=== PATIENT | female | born 1945 | race Caucasian/White ===

== ENCOUNTER 2016-11-15 10:54 | Emergency (ER) | payer MEDICARE, OTHER ==
[~2016-11-15] VITALS: Ht 167.6 cm; Wt 55.0 kg
[~2016-11-15 10:54] MED LIST: ADVA250A INH; ALBU1AER INH; ASPI81 PO; ATOR20TA42 PO; CALC500 PO; CARD240C6 PO; CILO100T PO; COLE625 PO; DOXE25CA2 PO; DUONI NEB; FERR324T4 PO; LACT PO; LASI20TA PO; LEVO100T4 PO; LOSA25TA31 PO; METO50TA PO; METR250 PO; OLOP1DRO EACH EYE; OXYC1SOL5 PO; PROM25TA5 PO; PROT40TA PO; REST15CA PO; TAB-TAB PO; TOLT4 PO; Z.0.OXYGENDME NC
[2016-11-15 10:58] VITALS: BP 172/75; PULSE 90; RESP 16; TEMP 98; O2SAT 92
[2016-11-15 11:31] VITALS: BP 134/63; PULSE 85; RESP 16; O2SAT 97
[2016-11-15 11:41] LABS: AUTOMATED NEUTROPHIL # 10.8 TH/MM3 (1.8-7.7); BASOPHIL # 0.1 TH/MM3 (0-0.2); BASOPHIL % 0.4 % (0.0-2.0); EOSINOPHIL % 0.3 % (0.0-4.0); LYMPH % 8.5 % (9.0-44.0); LYMPHOCYTE # 1.2 TH/MM3 (1.0-4.8); MEAN CELL VOLUME 90.7 FL (80.0-100.0); MEAN CORPUSCULAR HEMOGLOBIN 30.2 PG (27.0-34.0); MEAN CORPUSCULAR HGB CONC 33.3 % (32.0-36.0); MONO % 11.8 % (0.0-8.0); PLATELET COUNT 57 TH/MM3 (150-450); RED BLOOD COUNT 3.08 MIL/MM3 (4.00-5.30); RED CELL DISTRIBUTION WIDTH 15.8 % (11.6-17.2); WHITE BLOOD COUNT 13.7 TH/MM3 (4.0-11.0)
[2016-11-15 11:43] LABS: HEMO FLAGS AUTO DIFF
[2016-11-15 11:50] LABS: APTT (PATIENT) 28.4 SEC (24.3-30.1); INTERNATIONAL NORMALIZED RATIO 1.1 RATIO; PROTHROMBIN TIME - PATIENT 12.5 SEC (9.8-11.6)
[2016-11-15 11:56] LABS: BICARBONATE 25.7 MEQ/L (21.0-32.0); POTASSIUM 3.7 MEQ/L (3.5-5.1)
[2016-11-15 12:21] LABS: BANDS 4 % (0-6); NEUTROPHIL # MANUAL DIFF 12.3 TH/MM3 (1.8-7.7); POLYS (SEG NEUTROPHILS) 86 % (16-70); SCAN/DIFF FINAL DIFF MANUAL; WBC DIFF SAMPLE 100
[2016-11-15] MEDS ORDERED: PROM25TA5 PO (12:21)
[2016-11-15] MEDS ORDERED: KLOR8TAB PO (12:21)
[2016-11-15] MEDS ORDERED: HYDR-3533 PO ×2 (12:21→13:59)
[2016-11-15] MEDS ORDERED: PANT40TA3 PO (12:21)
[2016-11-15] MEDS ORDERED: ZOFR4TAB PO (12:21)
[2016-11-15] MEDS ORDERED: LOMO2.5T PO (12:21)
[2016-11-15] MEDS ORDERED: PROC10TA PO (12:21)
--- NOTE | 2016-11-15 12:21 | PD ---
HPI Chief Complaint: Pain: Acute or Chronic Time Seen by Provider: 11:26 Travel History International Travel<30 days: No Contact w/Intl Traveler<30days: No Traveled to known affect area: No History of Present Illness HPI This is a 71-year-old woman presents to the emergency department complaining of right lower extremity painful swelling. She is a history of stage IV lung cancer, currently receiving treatment for chemotherapy and radiation with some improvement. She also has COPD and is on home oxygen. She has chronic right lower extremity swelling related to a previous bypass harvest. She also has peripheral arterial disease and stents in the leg. She states that early this morning in the middle the night she woke up and had painful tender swelling of the calf. There is a discrete nodule that she can feel in the proximal medial calf that seems to be the focal point of the tenderness. She called and spoke to her oncologist, Dr. Orozco, who recommended she come in for evaluation. History Past Medical History Narrative Medical Stage IV lung cancer, on chemotherapy with Dr. Rayo COPD, on home oxygen CHF CAD, status post CABG History of A. fib GERD Peripheral arterial disease Depression PNEUMOCCOCAL Vaccine (Year): 1 Menopausal: Yes Social History Alcohol Use: No Tobacco Use: No Allergies-Medications (Allergen,Severity, Reaction): Coded Allergies: Betadine (Verified Allergy, Severe, Rash, 11/15/16) Demerol (Verified Allergy, Severe, VOMITING, 11/15/16) Dilaudid (Verified Allergy, Severe, Nausea/Vomiting, 11/15/16) Nonsteroidal Anti-Inflammatory Agts (Verified Allergy, Severe, ACID REFLUX , 11/15/16) Cinnamon (Verified Allergy, Intermediate, 11/15/16) Contrast Media (Verified Allergy, Intermediate, Itching, 11/15/16) patient has severe itching, redness after iv dye- even with premeds Tomato (Verified Allergy, Intermediate, 11/15/16) Morphine (Verified Adverse Reaction, Intermediate, 11/15/16) STATES, "I COULD HAVE THIS IF I NEED IT." Reported Meds & Prescriptions Reported Meds & Active Scripts Active Reported Proair Hfa 8.5 GM Inh (Albuterol Sulfate) 90 Mcg/Act Aer 2 Puff INH Q4H PRN 108 mcg/actuation Acidophilus (Probiotic Product) 1 Chew 1 Chew CHEW DAILY Duoneb (Ipratropium-Albuterol Neb) 0.5-2.5 Mg/3 Ml Neb 1 Nebule INH QID PRN Aspir-81 (Aspirin) 81 Mg Tabdr 81 Mg PO DAILY Atorvastatin (Atorvastatin Calcium) 20 Mg Tab 20 Mg PO HS Oscal 500/200 D-3 (Calcium Carbonate-Vitamin D) 500-200 Mg-Unit Tab 1 Tab PO DAILY Cilostazol 100 Mg Tab 100 Mg PO BID Detrol LA (Tolterodine Tartrate) 4 Mg Cap 4 Mg PO DAILY Diltiazem CD 24 HR 240 Mg Caper 240 Mg PO DAILY Doxepin (Doxepin HCl) 25 Mg Cap 25 Mg PO HS Ferrous Sulfate 325 Mg Tab 325 Mg PO DAILY Advair Diskus Inh (Fluticasone-Salmeterol Inh) 250-50 Mcg/Blist Aer 1 Puff INH BID Rinse mouth after use. Lasix (Furosemide) 20 Mg Tab 20 Mg PO DAILY Levothyroxine (Levothyroxine Sodium) 100 Mcg Tab 100 Mcg PO DAILY Losartan (Losartan Potassium) 25 Mg Tab 25 Mg PO DAILY Metoprolol Tartrate 50 Mg Tab 50 Mg PO BID Multi Vitamin (Multiple Vitamin) 1 Tab Tab 1 Tab PO DAILY Pazeo Opth Drops (Olopatadine HCl) 0.7 % Drops 1 Drop EACH EYE DAILY Lortab (Hydrocodone-Acetaminophen) 5-325 Mg Tab 1 Tab PO Q6H PRN Prochlorperazine Maleate 10 Mg Tab 10 Mg PO Q4H PRN Pantoprazole (Pantoprazole Sodium) 40 Mg Tab 40 Mg PO DAILY Phenergan (Promethazine HCl) 25 Mg Tab 25 Mg PO Q6H PRN Lomotil (Diphenoxylate-Atropine) 2.5-0.025 Mg Tab 1 Tab PO TID PRN Klor-Con 8 (Potassium Chloride) 8 Meq Tab 8 Meq PO DAILY Zofran (Ondansetron HCl) 4 Mg Tab 4-8 Mg PO Q6HR PRN Review of Systems Except as stated in HPI: all other systems reviewed are Neg Physical Exam Narrative GENERAL: Well-appearing 71-year-old woman, no acute distress. SKIN: Warm and dry. CARDIOVASCULAR: Regular rate and rhythm. No murmur appreciated. RESPIRATORY: No accessory muscle use. Clear to auscultation. Breath sounds equal bilaterally. GASTROINTESTINAL: Abdomen soft, non-tender, nondistended. Hepatic and splenic margins not palpable. MUSCULOSKELETAL: No obvious deformities. Examination the right lower extremity reveals previous scars from bypass harvest site. She has some pitting edema that she states is unchanged from baseline. In the calf there is a palpable firm tender nodule several centimeters in size no proximal calf. There is no palpable cords. Pulses are difficult to palpate in the leg but the foot is warm and well perfused. Data Data Last Documented VS Vital Signs Date Time Temp Pulse Resp B/P Pulse Ox O2 Delivery O2 Flow Rate FiO2 11/15/16 13:41 83 18 114/52 97 Nasal Cannula 2 11/15/16 10:58 98.0 Orders Complete Blood Count With Diff (11/15/16 11:26) Basic Metabolic Panel (Bmp) (11/15/16 11:26) Act Partial Throm Time (Ptt) (11/15/16 11:26) Prothrombin Time / Inr (Pt) (11/15/16 11:26) Us Leg Venous Doppler (11/15/16 ) Us Leg Soft Tissue (11/15/16 ) Ed Poc Ultrasound (11/15/16 ) Labs Laboratory Tests Test 11/15/16 11:30 White Blood Count 13.7 TH/MM3 Red Blood Count 3.08 MIL/MM3 Hemoglobin 9.3 GM/DL Hematocrit 28.0 % Mean Corpuscular Volume 90.7 FL Mean Corpuscular Hemoglobin 30.2 PG Mean Corpuscular Hemoglobin 33.3 % Concent Red Cell Distribution Width 15.8 % Platelet Count 57 TH/MM3 Mean Platelet Volume 9.7 FL Neutrophils (%) (Auto) 79.0 % Lymphocytes (%) (Auto) 8.5 % Monocytes (%) (Auto) 11.8 % Eosinophils (%) (Auto) 0.3 % Basophils (%) (Auto) 0.4 % Neutrophils # (Auto) 10.8 TH/MM3 Lymphocytes # (Auto) 1.2 TH/MM3 Monocytes # (Auto) 1.6 TH/MM3 Eosinophils # (Auto) 0.0 TH/MM3 Basophils # (Auto) 0.1 TH/MM3 CBC Comment AUTO DIFF Differential Total Cells 100 Counted Neutrophils % (Manual) 86 % Band Neutrophils % 4 % Lymphocytes % 5 % Monocytes % 5 % Neutrophils # (Manual) 12.3 TH/MM3 Differential Comment FINAL DIFF MANUAL Platelet Estimate LOW Platelet Morphology Comment NORMAL Acanthocytes OCC Prothrombin Time 12.5 SEC Prothromb Time International 1.1 RATIO Ratio Activated Partial 28.4 SEC Thromboplast Time Sodium Level 141 MEQ/L Potassium Level 3.7 MEQ/L Chloride Level 108 MEQ/L Carbon Dioxide Level 25.7 MEQ/L Anion Gap 7 MEQ/L Blood Urea Nitrogen 25 MG/DL Creatinine 1.06 MG/DL Estimat Glomerular Filtration 51 ML/MIN Rate Random Glucose 80 MG/DL Calcium Level 8.0 MG/DL MDM Medical Decision Making Medical Screen Exam Complete: Yes Emergency Medical Condition: Yes Interpretation(s) LABS: CBC remarkable for mildly elevated white count, mild anemia EMP mildly obese BUN/creatinine Coags unremarkable ultrasound for DVT is negative Ultrasound of the soft tissue shows a small confined soft tissue mass likely lipoma with a small rim of hypoechoic fluid. Differential Diagnosis DVT, superficial thrombophlebitis, abscess, hematoma, other Narrative Course Medical decision making INITIAL: 71-year-old woman presents emergency department with painful nodule in her right calf. I think she probably a superficial thrombophlebitis. DVT or hematoma could've a similar appearance. There is no ecchymosis or history of trauma. The foot appears well perfused. She has a history of peripheral vascular disease. Bedside ultrasound done by myself shows some subcutaneous edema in the area of interest. We'll get formal ultrasound and reassess. Procedures Procedure Narrative Point of care ultrasound: Focus soft tissue ultrasounds performed by me to evaluate soft tissue swelling in the right leg. There appears to be subcutaneous edema surrounding a superficial vein in the area. The pain does appear to collapse. Diagnosis Primary Impression: Lipoma Qualified Code: D17.23 - Lipoma of right lower extremity Additional Instructions: Take Keflex as prescribed. Use Lortab if needed for pain. Follow-up with your oncologist as scheduled. Return to the emergency department for any new or worsening symptoms. Med/Other Pt SpecificInfo: Prescription(s) given Disposition: 01 DISCHARGE HOME Condition: Stable Matt Ceballos MD Nov 15, 2016 12:21
[2016-11-15 12:23] LABS: ACANTHOCYTES OCC (NORMAL); PLATELET ESTIMATE SMEAR LOW (NORMAL); PLATELET MORPHOLOGY NORMAL (NORMAL)
[2016-11-15] MEDS ORDERED: DILT-64 PO (12:30)
[2016-11-15] MEDS ORDERED: OLOP1DRO EACH EYE (12:30)
[2016-11-15] MEDS ORDERED: DOXE25CA2 PO (12:30)
[2016-11-15] MEDS ORDERED: FERR325T PO (12:30)
[2016-11-15] MEDS ORDERED: CILO100T PO (12:30)
[2016-11-15] MEDS ORDERED: DETR4CAP PO (12:30)
[2016-11-15] MEDS ORDERED: ADVA250A INH (12:30)
[2016-11-15] MEDS ORDERED: MULT-135 PO (12:30)
[2016-11-15] MEDS ORDERED: IPRASOL INH (12:30)
[2016-11-15] MEDS ORDERED: LEVO100T5 PO (12:30)
[2016-11-15] MEDS ORDERED: ATOR20TA15 PO (12:30)
[2016-11-15] MEDS ORDERED: METO50TA PO (12:30)
[2016-11-15] MEDS ORDERED: FURO1TAB62 PO (12:30)
[2016-11-15] MEDS ORDERED: OSCA200T PO (12:30)
[2016-11-15] MEDS ORDERED: PROB1CHW2 CHEW (12:30)
[2016-11-15] MEDS ORDERED: LOSA25TA PO (12:30)
[2016-11-15] MEDS ORDERED: ALBUAER3 INH (12:30)
[2016-11-15] MEDS ORDERED: ASPI81TA81 PO (12:30)
--- NOTE | 2016-11-15 13:24 | RADRPT ---
EXAM DATE/TIME: 11/15/2016 12:14 [facility] COMPARISON: No previous studies available for comparison. INDICATIONS : Pain in right lower extremity. MEDICAL HISTORY : Osteoporosis. Arthritis. Thyroid disease. Lung cancer. Brain, liver and bon e mets. Myocardial infarction. Cardiac arrest. Congestive heart failure. Coronary artery disease. Hyp ercholesterolemia. A-Fib. COPD. Peripheral vascular disease. Scoliosis. Spinal stenosis. GERD. Hiatal hernia. SURGICAL HISTORY : Tonsillectomy. Right cataract. Craniotomy. Lesion excised from dura. CABG. Hysterectomy. Bilateral iliac artery stent. Angioplasty. Right chest port. Bypass graft in right lowe r extremity. ENCOUNTER: Subsequent ACUITY: 1 day PAIN SCORE: 5/10 LOCATION: Right leg. TECHNIQUE: Venous ultrasound of the leg was performed from the inguinal ligament to the proximal calf. Real-time, color Doppler and spectral tracing, compression and augmentation techniques were us ed. FINDINGS: There is normal compressibility of the deep venous system from the inguinal region to the proximal ca lf. No echogenic clot is seen in the lumen of the common femoral, femoral, popliteal, and posterior tibial veins. There is a normal response of the venous system to proximal and distal augmentation an d respiration. CONCLUSION: Negative for DVT Anish Zimmerman MD on November 15, 2016 at 13:21 Board Certified Radiologist. This report was verified electronically.
[2016-11-15 13:41] VITALS: BP 114/52; PULSE 83; RESP 18; O2SAT 97
--- NOTE | 2016-11-15 13:50 | RADRPT ---
EXAM DATE/TIME: 11/15/2016 12:08 [facility] COMPARISON: No previous studies available for comparison. INDICATIONS : Palpable lump in right calf. MEDICAL HISTORY : Osteoporosis. Arthritis. Thyroid disease. Lung cancer. Brain, liver and bone mets. Myocardial infar ction. Cardiac arrest. Congestive heart failure. Coronary artery disease. Hypercholesterolemia. A-Fib . COPD. Peripheral vascular disease. Scoliosis. Spinal stenosis. GERD. Hiatal hernia. SURGICAL HISTORY : Tonsillectomy. Right cataract. Craniotomy. Lesion excised from dura. CABG. Hysterectomy. Bilatera l iliac artery stent. Angioplasty. Right chest port. Bypass graft in right lower extremity. ENCOUNTER: Initial ACUITY: 1 day PAIN SCORE: 5/10 LOCATION: Right calf. AREA EVALUATED: Right proximal medial calf. FINDINGS: Sonographic evaluation of the area of concern involving the right calf reveals a 2.7 x 1.1 x 1.0 cm i soechoic soft tissue mass within the subcutaneous fat. There is a hypoechoic rim surrounding some of this. No hyperemia. CONCLUSION: Probable small lipoma. Ashutosh Chacon Jr., MD on November 15, 2016 at 13:47 Board Certified Radiologist. This report was verified electronically.
[2016-11-15] MEDS ORDERED: CEPH-460 PO (13:59)
== END 2016-11-15 14:11 | disposition home or self-care (01) ==
LOC: NEPA 10:54
DX: D17.23 Benign lipomatous neoplasm of skin and subcutaneous tissue of right leg (principal); M79.89 Other specified soft tissue disorders; J44.9 Chronic obstructive pulmonary disease, unspecified; I50.9 Heart failure, unspecified; I48.91 Unspecified atrial fibrillation; Z99.81 Dependence on supplemental oxygen
CPT/HCPCS: 76882; 80048; 85007; 85027; 85610; 85730; 93971

== ENCOUNTER 2017-03-07 15:05 | Inpatient (IN) | payer MEDICARE, OTHER ==
[~2017-03-07] VITALS: Ht 154.9 cm; Wt 58.5 kg
[~2017-03-07 15:05] MED LIST changes: -ALBU1AER INH; +ALBUAER3 INH; -ASPI81 PO; +ASPI81TA81 PO; +ATOR20TA15 PO; -ATOR20TA42 PO; -CALC500 PO; -CARD240C6 PO; +CEPH-460 PO; -COLE625 PO; +DETR4CAP PO; +DILT-64 PO; -DUONI NEB; -FERR324T4 PO; +FERR325T PO; +FURO1TAB62 PO; +HYDR-3533 PO; +IPRASOL INH; +KLOR8TAB PO; -LACT PO; -LASI20TA PO; -LEVO100T4 PO; +LEVO100T5 PO; +LOMO2.5T PO; +LOSA25TA PO; -LOSA25TA31 PO; -METR250 PO; +MULT-135 PO; +OSCA200T PO; -OXYC1SOL5 PO; +PANT40TA3 PO; +PROB1CHW2 CHEW; +PROC10TA PO; -PROT40TA PO; -REST15CA PO; -TAB-TAB PO; -TOLT4 PO; -Z.0.OXYGENDME NC; +ZOFR4TAB PO
[2017-03-07 15:22] VITALS: BP 119/56; PULSE 98; RESP 28; TEMP 99.9; O2SAT 96
--- NOTE | 2017-03-07 15:34 | PD ---
HPI Chief Complaint: Respiratory Distress Time Seen by Provider: 15:24 Travel History International Travel<30 days: No Contact w/Intl Traveler<30days: No Traveled to known affect area: No History of Present Illness HPI 71-year-old female with history of lung cancer stage IV status post chemotherapy and treatment, presents to the ER today with several days of shortness of breath, nausea, vomiting, subjective fevers, and dyspnea on exertion today. She is also having a right sided chest discomfort which she currently rates at a 7 out of 10. She states it worsens with deep breaths. Modifying Factors: None Associated Signs & Symptoms: Right sided chest wall pains, shortness of breath, dyspnea on exertion, vomiting, coughing, fevers Risk Factors: Lung cancer history PFSH Past Medical History Anemia: Yes Arthritis: Yes Asthma: No Atrial Fibrillation: Yes Autoimmune Disease: No Blood Disorders: No Anxiety: No Depression: No Heart Rhythm Problems: Yes (CORRECTED AFTER SURGERY) Cancer: Yes (LEFT LUNG W/METS TO DURA, LIVER, BONE (RADIATION 2014)) Cardiac Catheterization: Yes (OCT 2008) Cardiovascular Problems: Yes High Cholesterol: Yes Chemotherapy: Yes Chest Pain: Yes Congestive Heart Failure: Yes COPD: Yes Cerebrovascular Accident: Yes (SEVERAL MINI STROKES) Coronary Artery Disease: Yes Diabetes: No Diminished Hearing: No Endocrine: Yes Gastrointestinal Disorders: Yes (GERD) GERD: Yes Glaucoma: No Genitourinary: Yes (INCONTINENCE, FREQUENCY) Headaches: Yes Hepatitis: No Hiatal Hernia: Yes Heparin Induced Thrombocytopen: No Hypertension: Yes (PVD) Immune Disorder: No Implanted Vascular Access Dvce: No Insomnia: Yes Kidney Stones: No Musculoskeletal: Yes (OSTEOPOROSIS, SCOLIOSIS, SPINAL STENOSIS, ARTHRITIS) Neurologic: Yes (TIA'S, DURA METS FROM LUNG CA) Psychiatric: No Reproductive: No Respiratory: Yes (lung cancer,COPD) Immunizations Current: Yes Migraines: No Myocardial Infarction: Yes (THAT CAUSED CARDIAC ARREST 2008) Renal Failure: No Seizures: No Shingles: No Sleep Apnea: No Thyroid Disease: Yes Ulcer: No Tetanus Vaccination: > 5 Years Influenza Vaccination: Yes PNEUMOCCOCAL Vaccine (Year): 1 Menopausal: Yes : 2 Para: 2 Miscarriage: 0 : 0 Past Surgical History Abdominal Surgery: No AICD: No Appendectomy: No Arteriovenous Shunt: No Body Medical Devices: GERARDO. ILEO-FEMORAL STENTS Cardiac Surgery: Yes (CABG X 3 2008,) Cholecystectomy: Yes Coronary Artery Bypass Graft: Yes (X3 OCT 2008) Ear Surgery: No Endocrine Surgery: No Eye Surgery: No Genitourinary Surgery: No Gynecologic Surgery: Yes (HYSTERECTOMY) Hysterectomy: Yes (PARTIAL) Insulin Pump: No Joint Replacement: No Neurologic Surgery: Yes (CRANIOTOMY/ EXC. LESION DURA) Oral Surgery: Yes (T & A) Pacemaker: No Thoracic Surgery: No Tonsillectomy: Yes (T & A 1962) Other Surgery: Yes (BILAT ILIAC ARTERY STENT AND ANGIOPLASTY) Family History Family Myocardial Infarction: Yes Social History Alcohol Use: No Tobacco Use: No Substance Use: No Allergies-Medications (Allergen,Severity, Reaction): Coded Allergies: Betadine (Verified Allergy, Severe, Rash, 03/07/17) Demerol (Verified Allergy, Severe, VOMITING, 03/07/17) Dilaudid (Verified Allergy, Severe, Nausea/Vomiting, 03/07/17) Nonsteroidal Anti-Inflammatory Agts (Verified Allergy, Severe, ACID REFLUX , 03/07/17) Cinnamon (Verified Allergy, Intermediate, 03/07/17) Contrast Media (Verified Allergy, Intermediate, Itching, 03/07/17) patient has severe itching, redness after iv dye- even with premeds Tomato (Verified Allergy, Intermediate, 03/07/17) Morphine (Verified Adverse Reaction, Intermediate, 03/07/17) STATES, "I COULD HAVE THIS IF I NEED IT." Reported Meds & Prescriptions Reported Meds & Active Scripts Active Lortab (Hydrocodone-Acetaminophen) 5-325 Mg Tab 1-2 Tab PO Q6H PRN Reported Zometa Inj (Zoledronic Acid) 4 Mg/100 Ml Inj 4 Mg IV MONTHLY Toviaz ER (Fesoterodine Fumarate) 8 Mg Yandel 8 Mg PO DAILY Temazepam 15 Mg Cap 15 Mg PO HS PRN Opdivo (Nivolumab) 40 Mg/4 Ml Inj 1 Injection IM DIRECTED Proair Hfa 8.5 GM Inh (Albuterol Sulfate) 90 Mcg/Act Aer 2 Puff INH Q4H PRN 108 mcg/actuation Duoneb (Ipratropium-Albuterol Neb) 0.5-2.5 Mg/3 Ml Neb 1 Nebule INH QID PRN Aspir-81 (Aspirin) 81 Mg Tabdr 81 Mg PO DAILY Atorvastatin (Atorvastatin Calcium) 20 Mg Tab 20 Mg PO HS Diltiazem CD 24 HR 240 Mg Caper 240 Mg PO DAILY Doxepin (Doxepin HCl) 25 Mg Cap 25 Mg PO HS Ferrous Sulfate 325 Mg Tab 325 Mg PO DAILY Advair Diskus Inh (Fluticasone-Salmeterol Inh) 250-50 Mcg/Blist Aer 1 Puff INH BID Rinse mouth after use. Levothyroxine (Levothyroxine Sodium) 100 Mcg Tab 100 Mcg PO DAILY Losartan (Losartan Potassium) 25 Mg Tab 25 Mg PO DAILY Metoprolol Tartrate 50 Mg Tab 50 Mg PO BID Multi Vitamin (Multiple Vitamin) 1 Tab Tab 1 Tab PO DAILY Pazeo Opth 0.7% (Olopatadine HCl) 0.7 % Drops 1 Drop EACH EYE DAILY Lortab (Hydrocodone-Acetaminophen) 5-325 Mg Tab 1 Tab PO Q6H PRN Prochlorperazine Maleate 10 Mg Tab 10 Mg PO Q4H PRN Pantoprazole (Pantoprazole Sodium) 40 Mg Tab 40 Mg PO DAILY Phenergan (Promethazine HCl) 25 Mg Tab 25 Mg PO Q6H PRN Lomotil (Diphenoxylate-Atropine) 2.5-0.025 Mg Tab 1 Tab PO TID PRN Klor-Con 8 (Potassium Chloride) 8 Meq Tab 8 Meq PO DAILY Zofran (Ondansetron HCl) 4 Mg Tab 4-8 Mg PO Q6HR PRN Review of Systems Except as stated in HPI: all other systems reviewed are Neg Physical Exam Narrative GENERAL: Well-developed elderly white female in mild distress. Awake and oriented 3. SKIN: Focused skin assessment warm/dry. HEAD: Atraumatic. Normocephalic. EYES: Pupils equal and round. No scleral icterus. No injection or drainage. ENT: No nasal bleeding or discharge. Mucous membranes pink and moist. NECK: Trachea midline. No JVD. CARDIOVASCULAR: Regular rate and rhythm. No murmur appreciated. RESPIRATORY: No accessory muscle use. Equal and decreased throughout. Breath sounds equal bilaterally. GASTROINTESTINAL: Abdomen soft, non-tender, nondistended. Hepatic and splenic margins not palpable. MUSCULOSKELETAL: No obvious deformities. No clubbing. No cyanosis. No edema. NEUROLOGICAL: Awake and alert. No obvious cranial nerve deficits. Motor grossly within normal limits. Normal speech. PSYCHIATRIC: Appropriate mood and affect; insight and judgment normal. Data Data Last Documented VS Vital Signs Date Time Temp Pulse Resp B/P Pulse Ox O2 Delivery O2 Flow Rate FiO2 03/07/17 15: 97 Nasal Cannula 2 03/07/17: 28 03/07/17: 99.9 98 119/56 Orders Electrocardiogram (03/07/17:) Complete Blood Count With Diff (03/07/17:) Comprehensive Metabolic Panel (03/07/17) Prothrombin Time / Inr (Pt) (03/07/17) Act Partial Throm Time (Ptt) (03/07/17) Lactic Acid Sepsis Protocol (03/07/17) Magnesium (Mg) (03/07/17) Ckmb (Isoenzyme) Profile (03/07/17) Troponin I (03/07/17) Urinalysis - C+S If Indicated (03/07/17) Blood Culture (03/07/17) Chest, Single Ap (03/07/17) Blood Glucose (03/07/17) Ecg Monitoring (03/07/17) Iv Access Insert/Monitor (03/07/17) Oximetry (03/07/17) Oxygen Administration (03/07/17) B-Type Natriuretic Peptide (03/07/17 16:49) Ventilation & Perfusion Scan (03/07/17 18:01) Urine Culture (03/07/17 18:10) Labs Laboratory Tests Test 03/07/17 03/07/17 15 18:10 White Blood Count 8.3 TH/MM3 Red Blood Count 3.25 MIL/MM3 Hemoglobin 9.7 GM/DL Hematocrit 28.2 % Mean Corpuscular Volume 86.8 FL Mean Corpuscular Hemoglobin 29.8 PG Mean Corpuscular Hemoglobin 34.3 % Concent Red Cell Distribution Width 14.9 % Platelet Count 46 TH/MM3 Mean Platelet Volume 8.4 FL Neutrophils (%) (Auto) 80.4 % Lymphocytes (%) (Auto) 8.4 % Monocytes (%) (Auto) 11.0 % Eosinophils (%) (Auto) 0.1 % Basophils (%) (Auto) 0.1 % Neutrophils # (Auto) 6.7 TH/MM3 Lymphocytes # (Auto) 0.7 TH/MM3 Monocytes # (Auto) 0.9 TH/MM3 Eosinophils # (Auto) 0.0 TH/MM3 Basophils # (Auto) 0.0 TH/MM3 CBC Comment AUTO DIFF Differential Comment AUTO DIFF CONFIRMED Prothrombin Time 11.3 SEC Prothromb Time International 1.0 RATIO Ratio Activated Partial 28.6 SEC Thromboplast Time Sodium Level 138 MEQ/L Potassium Level 4.0 MEQ/L Chloride Level 104 MEQ/L Carbon Dioxide Level 24.8 MEQ/L Anion Gap 9 MEQ/L Blood Urea Nitrogen 33 MG/DL Creatinine 1.42 MG/DL Estimat Glomerular Filtration 36 ML/MIN Rate Random Glucose 89 MG/DL Lactic Acid Level 1.4 mmol/L Calcium Level 8.6 MG/DL Magnesium Level 1.8 MG/DL Total Bilirubin 0.6 MG/DL Aspartate Amino Transf 52 U/L (AST/SGOT) Alanine Aminotransferase 50 U/L (ALT/SGPT) Alkaline Phosphatase 89 U/L Total Creatine Kinase 55 U/L Troponin I LESS THAN 0.02 NG/ML Total Protein 6.5 GM/DL Albumin 3.1 GM/DL Urine Color YELLOW Urine Turbidity CLEAR Urine pH 6.5 Urine Specific Aragon 1.010 Urine Protein TRACE mg/dL Urine Glucose (UA) NEG mg/dL Urine Ketones NEG mg/dL Urine Occult Blood SMALL Urine Nitrite POS Urine Bilirubin NEG Urine Urobilinogen LESS THAN 2.0 MG/DL Urine Leukocyte Esterase SMALL Urine RBC 1 /hpf Urine WBC 6 /hpf Urine Squamous Epithelial <1 /hpf Cells Urine Bacteria MANY /hpf Urine Mucus FEW /lpf Microscopic Urinalysis Comment CATH-CULTURE IND MDM Medical Decision Making Medical Screen Exam Complete: Yes Emergency Medical Condition: Yes Medical Record Reviewed: Yes Interpretation(s) Laboratory Tests Test 03/07/17 03/07/17 15:30 18:10 Red Blood Count 3.25 MIL/MM3 (4.00-5.30) Hemoglobin 9.7 GM/DL (11.6-15.3) Hematocrit 28.2 % (35.0-46.0) Platelet Count 46 TH/MM3 (150-450) Neutrophils (%) (Auto) 80.4 % (16.0-70.0) Lymphocytes (%) (Auto) 8.4 % (9.0-44.0) Monocytes (%) (Auto) 11.0 % (0.0-8.0) Lymphocytes # (Auto) 0.7 TH/MM3 (1.0-4.8) Blood Urea Nitrogen 33 MG/DL (7-18) Creatinine 1.42 MG/DL (0.50-1.00) Estimat Glomerular Filtration 36 ML/MIN (>89) Rate Aspartate Amino Transf 52 U/L (15-37) (AST/SGOT) Troponin I LESS THAN 0.02 NG/ML (0.02-0.05) Albumin 3.1 GM/DL (3.4-5.0) Urine Occult Blood SMALL (NEG) Urine Nitrite POS (NEG) Urine Leukocyte Esterase SMALL (NEG) Urine WBC 6 /hpf (0-5) Urine Bacteria MANY /hpf (NONE) Urine Mucus FEW /lpf (OCC) Differential Diagnosis Cough, fevers, vomiting, dyspnea on exertion, chest painpneumonia versus pleurisy versus bronchitis versus costochondritis versus ACS versus CHF Narrative Course Chest x-ray did not show any signs of acute processes. Lab work did not show significant metabolic issues or dehydration. She does have a minor UTI. VQ scan has been ordered for the patient for further evaluation. Physician Communication Physician Communication Case is signed out to oncoming physician Dr. Whitfield awaiting VQ scan. Diagnosis Primary Impression: Shortness of breath Condition: Stable Katja Nguyen MD March 07, 2017 15:34 Katja Nguyen MD March 07, 2017 15:34
[2017-03-07] MEDS ORDERED: NIVO1INJ IM (15:42)
[2017-03-07] MEDS ORDERED: ZOME4INJ IV (15:42)
[2017-03-07] MEDS ORDERED: TEMA15CA PO (15:42)
[2017-03-07] MEDS ORDERED: TOVI8TAB PO (15:42)
--- NOTE | 2017-03-07 16:01 | RADRPT ---
EXAM DATE/TIME: 03/07/2017 15:49 [facility] COMPARISON: CHEST SINGLE AP, August 03, 2016, 18:52. INDICATIONS : Short of breath, pain in right chest and back, vomiting, congestion MEDICAL HISTORY : Chronic obstructive pulmonary disease. Carcinoma, lung. Cardiovascular disease. SURGICAL HISTORY : CABG. ENCOUNTER: Initial ACUITY: 1 day PAIN SCORE: 7/10 LOCATION: Right chest FINDINGS: Bnotsm-[id number]-Tohu is in good position. Lungs are mildly hyperinflated. Sternal wires from previous medi an sternotomy are noted. Heart and pulmonary vascularity are normal. CONCLUSION: Mild hyperinflation without pneumothorax. Joes Lacey MD FACR on March 07, 2017 at 15:57 Board Certified Radiologist. This report was verified electronically.
[2017-03-07 16:06] LABS: AUTOMATED NEUTROPHIL # 6.7 TH/MM3 (1.8-7.7); BASOPHIL % 0.1 % (0.0-2.0); EOSINOPHIL % 0.1 % (0.0-4.0); HEMATOCRIT 28.2 % (35.0-46.0); LYMPH % 8.4 % (9.0-44.0); LYMPHOCYTE # 0.7 TH/MM3 (1.0-4.8); MEAN CELL VOLUME 86.8 FL (80.0-100.0); MEAN CORPUSCULAR HEMOGLOBIN 29.8 PG (27.0-34.0); MEAN CORPUSCULAR HGB CONC 34.3 % (32.0-36.0); NEUT % 80.4 % (16.0-70.0); PLATELET COUNT 46 TH/MM3 (150-450); RED BLOOD COUNT 3.25 MIL/MM3 (4.00-5.30); RED CELL DISTRIBUTION WIDTH 14.9 % (11.6-17.2); WHITE BLOOD COUNT 8.3 TH/MM3 (4.0-11.0)
[2017-03-07 16:09] LABS: HEMO FLAGS AUTO DIFF
[2017-03-07 16:16] LABS: APTT (PATIENT) 28.6 SEC (24.3-30.1); PROTHROMBIN TIME - PATIENT 11.3 SEC (9.8-11.6)
[2017-03-07 16:33] LABS: ALT (GPT) 50 U/L (10-53); ANION GAP 9 MEQ/L (5-15); AST (GOT) 52 U/L (15-37); BICARBONATE 24.8 MEQ/L (21.0-32.0); BLOOD UREA NITROGEN 33 MG/DL (7-18); CHLORIDE 104 MEQ/L (98-107); GLOMERULAR FILTRATION RATE 36 ML/MIN (>89); MAGNESIUM 1.8 MG/DL (1.5-2.5); SODIUM (NA) 138 MEQ/L (136-145)
[2017-03-07 16:37] LABS: ALKALINE PHOSPHATASE 89 U/L (45-117); TOTAL BILIRUBIN ADULT 0.6 MG/DL (0.2-1.0)
[2017-03-07 16:47] LABS: CREATINE KINASE 55 U/L (26-192)
[2017-03-07 18:00] LABS: SCAN/DIFF AUTO DIFF CONFIRMED
[2017-03-07 18:45] LABS: BACTERIA, URINE MANY /hpf; BLOOD, URINE SMALL (NEG); GLUCOSE,URINE NEG (NEG); KETONE, URINE NEG (NEG); MUCUS URINE FEW /lpf (OCC); PH, URINE 6.5 (5.0-8.5); SQUAMOUS EPITHELIAL CELL URINE <1 /hpf (0-5); URINE COLOR YELLOW (YELLW/STRAW)
[2017-03-07 18:47] LABS: COMMENT (UR) CATH-CULTURE IND; CULTURE IF INDICATED CATH CULTURE IND; NITRITE,URINE POS (NEG)
[2017-03-07 19:06] VITALS: BP 123/58; PULSE 87; RESP 18; O2SAT 98
--- NOTE | 2017-03-07 19:11 | PD ---
Physical Exam Narrative General: The patient is a well-developed well-nourished female in no acute distress. Head and Neck exam: Head is normocephalic atraumatic. Eyes: EOMI, pupils are equal round and reactive to light. Nose: Midline septum with pink mucous membranes Mouth: Dentition unremarkable. Moist mucus membranes. Posterior oropharynx is not erythematous. No tonsillar hypertrophy. Uvula midline. Airway patent. Neck: No palpable lymphadenopathy. No nuchal rigidity. No thyromegaly. Cardiovascular: Regular rate and rhythm without murmurs, gallops, or rubs. Lungs: Decreased breath sounds in bilateral lung bases, no rhonchi, no crackles audible. Abdomen: Soft, without tenderness to palpation in all 4 quadrants of the abdomen. No guarding, rebound, or rigidity. Normal bowel sounds are audible. No tenderness on palpation of McBurney's point. Extremities: No clubbing, cyanosis, or edema. No calf tenderness on palpation. Back: No spinous process tenderness to palpation. No costovertebral angle tenderness to palpation. Neurologic Exam: Nonfocal. Skin Exam: No rash noted. Intact skin that is warm and dry. Data Data Last Documented VS Vital Signs Date Time Temp Pulse Resp B/P Pulse Ox O2 Delivery O2 Flow Rate FiO2 03/07/17 20:35 85 18 111/53 94 Nasal Cannula 2 03/07/17 15:22 99.9 Orders Electrocardiogram (03/07/17 15:24) Complete Blood Count With Diff (03/07/17 15:24) Comprehensive Metabolic Panel (03/07/17 15:24) Prothrombin Time / Inr (Pt) (03/07/17 15:24) Act Partial Throm Time (Ptt) (03/07/17 15:24) Lactic Acid Sepsis Protocol (03/07/17 15:24) Magnesium (Mg) (03/07/17 15:24) Ckmb (Isoenzyme) Profile (03/07/17 15:24) Troponin I (03/07/17 15:24) Urinalysis - C+S If Indicated (03/07/17 15:24) Blood Culture (03/07/17 15:24) Chest, Single Ap (03/07/17 15:24) Blood Glucose (03/07/17 15:24) Ecg Monitoring (03/07/17 15:24) Iv Access Insert/Monitor (03/07/17 15:24) Oximetry (03/07/17 15:24) Oxygen Administration (03/07/17 15:24) B-Type Natriuretic Peptide (03/07/17 16:49) Ventilation & Perfusion Scan (03/07/17 18:01) Urine Culture (03/07/17 18:10) Ceftriaxone Inj (Rocephin Inj) (03/07/17 19:15) Acetaminophen (Tylenol) (03/07/17 19:45) Heparin Infusion YANI.Q1H (03/07/17 20:37) Act Partial Throm Time (Ptt) (03/07/17 20:37) Prothrombin Time / Inr (Pt) (03/07/17 20:37) Cbc No Diff, Includes Plts (03/07/17 20:37) Cbc No Diff, Includes Plts (03/10/17 06:00) Act Partial Throm Time (Ptt) (03/08/17 03:37) Occult Blood (Hemoccult) Stool (03/07/17 20:37) Admit Order (Ed Use Only) (03/07/17 20:45) Labs Laboratory Tests Test 03/07/17 03/07/17 15:30 18:10 White Blood Count 8.3 TH/MM3 Red Blood Count 3.25 MIL/MM3 Hemoglobin 9.7 GM/DL Hematocrit 28.2 % Mean Corpuscular Volume 86.8 FL Mean Corpuscular Hemoglobin 29.8 PG Mean Corpuscular Hemoglobin 34.3 % Concent Red Cell Distribution Width 14.9 % Platelet Count 46 TH/MM3 Mean Platelet Volume 8.4 FL Neutrophils (%) (Auto) 80.4 % Lymphocytes (%) (Auto) 8.4 % Monocytes (%) (Auto) 11.0 % Eosinophils (%) (Auto) 0.1 % Basophils (%) (Auto) 0.1 % Neutrophils # (Auto) 6.7 TH/MM3 Lymphocytes # (Auto) 0.7 TH/MM3 Monocytes # (Auto) 0.9 TH/MM3 Eosinophils # (Auto) 0.0 TH/MM3 Basophils # (Auto) 0.0 TH/MM3 CBC Comment AUTO DIFF Differential Comment AUTO DIFF CONFIRMED Prothrombin Time 11.3 SEC Prothromb Time International 1.0 RATIO Ratio Activated Partial 28.6 SEC Thromboplast Time Sodium Level 138 MEQ/L Potassium Level 4.0 MEQ/L Chloride Level 104 MEQ/L Carbon Dioxide Level 24.8 MEQ/L Anion Gap 9 MEQ/L Blood Urea Nitrogen 33 MG/DL Creatinine 1.42 MG/DL Estimat Glomerular Filtration 36 ML/MIN Rate Random Glucose 89 MG/DL Lactic Acid Level 1.4 mmol/L Calcium Level 8.6 MG/DL Magnesium Level 1.8 MG/DL Total Bilirubin 0.6 MG/DL Aspartate Amino Transf 52 U/L (AST/SGOT) Alanine Aminotransferase 50 U/L (ALT/SGPT) Alkaline Phosphatase 89 U/L Total Creatine Kinase 55 U/L Troponin I LESS THAN 0.02 NG/ML B-Type Natriuretic Peptide 215 PG/ML Total Protein 6.5 GM/DL Albumin 3.1 GM/DL Urine Color YELLOW Urine Turbidity CLEAR Urine pH 6.5 Urine Specific [place] 1.010 Urine Protein TRACE mg/dL Urine Glucose (UA) NEG mg/dL Urine Ketones NEG mg/dL Urine Occult Blood SMALL Urine Nitrite POS Urine Bilirubin NEG Urine Urobilinogen LESS THAN 2.0 MG/DL Urine Leukocyte Esterase SMALL Urine RBC 1 /hpf Urine WBC 6 /hpf Urine Squamous Epithelial <1 /hpf Cells Urine Bacteria MANY /hpf Urine Mucus FEW /lpf Microscopic Urinalysis Comment CATH-CULTURE IND MDM Medical Record Reviewed: Yes Supervised Visit with NAKIA: No Interpretation(s) Last Impressions Lung Scan-VQ Nuclear Medicine 03/07/17 180 Signed Impressions: Service Date/Time: Tuesday, March 07, 2017 19:52 - CONCLUSION: Intermediate probability for pulmonary embolism. Rodney Vivar MD Narrative Course During the course of the patients emergency department visit, the patients history, examination, and differential diagnosis were reviewed with the patient. The patient had IV access obtained and blood work sent for analysis. The patient was placed on a school bus monitor with oximetry and blood pressure monitoring. The patient's case was checked out to me by Dr. Obrien. The patient is a 71-year-old female who presents to [facility] emergency department with a history of right sided lateral chest pain that is worse with taking a deep breath and was associated with a cough earlier today, increase dyspnea with exertion. The patient reports that she has a history of COPD with dyspnea at her baseline. The patient reports that she had 1 episode of vomiting earlier today. The patient is also recently started on immunotherapy for lung cancer. She completed chemotherapy with Dr. Rojo in October 2016. Her primary care physician is Dr. Beck. The patients laboratory studies were reviewed and remarkable for a white count of 8.3, hemoglobin 9.7, platelets 46 with 80.4 neutrophils, lymphocytes 8.4, monocytes 11, CMP is remarkable for a BUN of 33, creatinine 1.42, AST 52, CPK 55 , troponin I less than 0.02, lactic acid 1.4, PT 11.3, PTT 28.6, urinalysis shows small occult blood, positive nitrite, small leukocyte esterase, 6 WBCs, many bacteria. This is reportedly a catheterized specimen, culture indicated. The patient's symptoms could be related to pyelonephritis with a right-sided CVA tenderness, however palpating for CVA tenderness is somewhat difficult in this patient who has some deformity of her back related to kyphosis. The patient will be started on antibiotic. The patient will be given Rocephin 1 g IV. Radiology studies were reviewed and remarkable for a chest x-ray that shows mild hyperinflation, evidence of COPD, no other acute abnormality. The patient is in the process of waiting going to VQ scan to evaluate for possible PE. VQ scan was intermediate probability for PE. Given the patient's symptoms there continues to be concerned that this is a pulmonary embolism that is causing her symptoms. The patient will be admitted to the hospital for continued evaluation and treatment. The patient's case was discussed with the [facility] hospitalist group. They did agree with the patient being started on heparin in spite of the patient's low platelets. The patient's platelets have been at this level chronically. The patient will be started on a heparin drip without a bolus. The patient's CBC will be monitored closely. The patient was agreeable with this plan. The patients results were discussed with the patient, including the plan of care. I explained that further testing and/ or monitoring is indicated based on the patients history, examination, and/ or laboratory findings. Therefore, I recommended admission for additional evaluation. The patient expressed understanding and was agreeable with this plan. The patient was admitted to the hospital in stable condition and sent to a bed under the care of the [facility] hospitalist group. Physician Communication Physician Communication The patient's case was discussed with Hilton Garcias, who did agree to admit the patient to Dr. Crespo's service. Diagnosis Primary Impression: Shortness of breath Additional Impressions: Right-sided chest pain Urinary tract infection Qualified Code: N39.0 - Urinary tract infection without hematuria, site unspecified Admitting Information Admitting Physician Requests: Admit Condition: Stable Maru Whitfield MD March 07, 2017 19:10
[2017-03-07] MEDS ORDERED: cefTRIAXone INJ 1,000 MG in SODIUM CHLORIDE 0.9% INJ 100 ML IV ONE (19:15)
[2017-03-07] MEDS ORDERED: ACETAMINOPHEN 325 MG TAB PO ONE (19:45)
--- NOTE | 2017-03-07 20:28 | RADRPT ---
EXAM DATE/TIME: 03/07/2017 19:52 [facility] COMPARISON: LUNG VENTILATION & PERFUSION SCAN, August 04, 2016, 15:29. INDICATIONS : Shortness of breath and right sided chest pressure for a few days. DOSE: 8.1 mCi Tc99m MAA IV 1.08 mCi Tc99m DTPA aerosol MEDICAL HISTORY : Carcinoma, lung. Chronic obstructive pulmonary disease. Stroke. SURGICAL HISTORY : Craniotomy. Hysterectomy. ENCOUNTER: Initial ACUITY: 2 days PAIN SCALE: 7/10 LOCATION: Right chest TECHNIQUE: Following five minutes of tidal breathing of DTPA aerosol, planar images of the lungs were performed in eight projections. The patient was then injected with MAA, and eight-view perfusion scan was perf ormed. FINDINGS: There is a heterogeneous pattern of aerosol delivery to the periphery of both lungs. The perfusion lung scan demonstrates some mismatched defects in the upper lobes. CONCLUSION: Intermediate probability for pulmonary embolism. Rodney Vivar MD on March 07, 2017 at 20:23 Board Certified Radiologist. This report was verified electronically.
[2017-03-07 20:35] VITALS: BP 111/53; PULSE 85; RESP 18; O2SAT 94
[2017-03-07 21:41] LABS: HEMATOCRIT 25.4 % (35.0-46.0); MEAN CELL VOLUME 87.4 FL (80.0-100.0); MEAN CORPUSCULAR HEMOGLOBIN 29.2 PG (27.0-34.0); MEAN CORPUSCULAR HGB CONC 33.4 % (32.0-36.0); PLATELET COUNT 37 TH/MM3 (150-450); RED BLOOD COUNT 2.91 MIL/MM3 (4.00-5.30); WHITE BLOOD COUNT 7.2 TH/MM3 (4.0-11.0)
[2017-03-07 21:43] LABS: REVIEW FLAG FINAL
[2017-03-07 21:47] LABS: APTT (PATIENT) 26.7 SEC (24.3-30.1); PROTHROMBIN TIME - PATIENT 11.4 SEC (9.8-11.6)
[2017-03-07] MEDS: HEPARIN-D5W INJ 250 ML IV SCH (21:57)
[2017-03-07 22:01] VITALS: BP 115/70; PULSE 90; RESP 18; O2SAT 94
[2017-03-07] MEDS ORDERED: SODIUM CHLORIDE 0.9% FLUSH 10 ML FLUSH IV FLUSH PRN (22:15)
[2017-03-07] MEDS ORDERED: ONDANSETRON HCL 4 MG/2 ML VIAL IVP PRN (22:15)
[2017-03-07] MEDS ORDERED: MAGNESIUM HYDROXIDE SUSP 30 ML CUP PO PRN (22:15)
[2017-03-07] MEDS ORDERED: SENNOSIDES 8.6 MG TAB PO PRN (22:15)
[2017-03-07] MEDS: SODIUM CHLOR 0.9% 1000 ML INJ 1,000 ML IV SCH (22:34)
[2017-03-07 23:41] VITALS: TEMP 98.4
[2017-03-08] VITALS (9 sets, daily range): BP systolic 116–157; BP diastolic 55–67; PULSE 68–84; RESP 16–20; TEMP 96.6–99.4; O2SAT 96–98
[2017-03-08 04:00] LABS: ANION GAP 6 MEQ/L (5-15); BICARBONATE 23.7 MEQ/L (21.0-32.0); BLOOD UREA NITROGEN 27 MG/DL (7-18); CHLORIDE 111 MEQ/L (98-107); GLOMERULAR FILTRATION RATE 48 ML/MIN (>89); POTASSIUM 3.9 MEQ/L (3.5-5.1); SODIUM (NA) 141 MEQ/L (136-145)
[2017-03-08 04:13] LABS: APTT (PATIENT) 39.7 SEC (24.3-30.1)
[2017-03-08] MEDS: FAMOTIDINE 20 MG TAB PO SCH ×2 (09:00→21:00)
[2017-03-08] MEDS: SODIUM CHLOR 0.9% 1000 ML INJ 1,000 ML IV SCH ×3 (09:14→19:35)
[2017-03-08] MEDS: ACETAMINOPHEN 325 MG TAB PO PRN ×3 (09:15→22:00)
[2017-03-08] MEDS: SODIUM CHLORIDE 0.9% FLUSH 10 ML FLUSH IV FLUSH SCH ×2 (09:15→21:00)
[2017-03-08] MEDS ORDERED: PILL SPLITTER OTHER PRN (09:15)
[2017-03-08 09:25] LABS: APTT (PATIENT) 39.7 SEC (24.3-30.1)
--- NOTE | 2017-03-08 09:31 | MH ---
cc: JOSHUA CRESPO DATE OF ADMISSION 03/07/2017 CHIEF COMPLAINT Shortness of breath. TRAVEL No travel in the last 30 days. HISTORY OF PRESENT ILLNESS This is a 71-year-old white female who woke up to feed her cats on the at 0300 and began having an acute onset of right sided chest discomfort. She states that it was associated with shortness of breath The patient went back and laid back down, but became nauseated and had dry heaves yesterday a.m., the day of admission. The patient also complained of some fevers and had shortness of breath off and on during the day. Her daughter now lives with her and assists her with her care. She was diagnosed in April of 2015 with lung cancer and treatment was initiated again in April of 2016 for the lung cancer with metastasis. The patient has been through six rounds of chemotherapy and is currently doing immunotherapy. Her next dose is due Tuesday. The patient denies any other chest pain besides the right sided chest pain that is related to her shortness of breath. The patient has an occasional cough. No further nausea or vomiting. No diarrhea. No constipation. The patient's bowels did move this morning normally, but she did note some possible blood in the stool. MEDICAL HISTORY 1. Arthritis 2. Anemia 3. Atrial fibrillation 4. Coronary artery disease 5. Mini-strokes 6. GERD 7. Urinary incontinence 8. Hypertension 9. Peripheral vascular disease 10. Osteoporosis 11. Scoliosis 12. Spinal stenosis 13. Lung cancer 14. COPD 15. Was a tobacco user until 2008. 16. [place] in 2008 17. Congestive heart failure 18. Thyroid disease 19. Insomnia 20. Hiatal hernia 21. Headaches. Most of this information is being gathered from the record and the patient. SURGICAL HISTORY 1. She has had chemotherapy. 2. She has had immunotherapy. 3. Iliofemoral stents with three bypasses in 2008. 4. Cholecystectomy 5. Hysterectomy 6. Craniotomy to remove a cancerous lesion. 7. T&A 8. Angioplasty ALLERGIES BETADINE, CINNAMON, CONTRAST MEDIA, DEMEROL, DILAUDID, MORPHINE, NONSTEROIDAL ANTI-INFLAMMATORY AGENTS AND TOMATOES. REPORTED MEDICATIONS 1. ProAir 2. Opdivo 3. Temazepam 4. Toviaz 5. Zometa 6. Lortab for pain SOCIAL HISTORY The patient was last June and currently still lives in her home. Her daughter is now living with her to assist. The patient was a long-term tobacco user, quit in 2008. No alcohol. No illicit drugs. REVIEW OF SYSTEMS A 12-point review was obtained, positives noted in the HPI which include her right sided chest pain, shortness of breath, some fever, nausea, vomiting or her chief complains. Other systems are unremarkable or negative. PHYSICAL EXAM VITAL SIGNS: Temperature is now 97.6, pulse 75, respirations 18, blood pressure 127/55, O2 sat 96. Initially last night recorded is temp of 98.4, pulse 90, respirations 18, blood pressure 115/70, O2 sat 94, O2 at two liters. GENERAL: This is a slim, but well-developed elderly white female who looks to be her stated age. She is resting in the bed, alert and oriented times three. SKIN: Pale, but warm and dry. She has a few abrasions on her extremities. HEAD, EYES, EARS, NOSE, AND THROAT: Atraumatic, normocephalic. PERRLA at 2. No nasal discharge. Mucous membranes are pale, but moist. Trachea is midline. CARDIOVASCULAR: S1 and S2, regular rate and regular. No murmurs, rubs or gallops. She has no edema in her left leg, right lower leg has a trace of edema. Pulses intact. RESPIRATORY: Her breath sounds have some mild decreased sounds throughout. I hear no wheezes, rales or rhonchi. MUSCULOSKELETAL: She moves all extremities with purpose. Her hand veterinarian assistant are equal. NEUROLOGIC: Alert and oriented, a fairly good historian. Speech is clear. PSYCHIATRIC: Appropriate mood and affect. Insight and judgment is normal. DIAGNOSTIC DATA WBC count this last p.m. 7.2, RBC 2.91, hemoglobin 8.5, was 9.7 on admission, hematocrit 25.4, platelet count is 46 on admission, now 37. PT-INR is 1. Her last APTT is 39.7. Chemistry this a.m. at 0330, sodium 141, potassium 3.9, chloride 111, carbon dioxide 23.7, amnion gap is 6, BUN 27, creatinine 1.11, lactic acid was 1.4, her troponin's are negative at less than 0.02, BMP is 215, albumin 3.1, total protein 6.5. Her urine is yellow and clear, pH is 6.5, specific gravity 1.010, trace of protein, small amount of occult blood, positive for nitrites, small amount of leukocyte esterase, all others are negative or unremarkable. We are doing a culture and sensitivity on that urine. IMAGING STUDIES Show VQ scan to have intermediate probability of pulmonary embolism. ASSESSMENT AND PLAN 1. Pulmonary emboli associated with shortness of breath, cough and fevers, nausea and vomiting. 2. UTI. 3. History of lung cancer with metastasis still receiving. Immunotherapy. 4. Hypertension 5. COPD 6. Dyspnea 7. GERD PLAN 1. Aggressive treat her with a heparin drip. 2. We will continue to re-evaluate her medications as warranted and monitor any increased blood in her stools. Currently, the patient can be out of bed, but only with assistance. She is admitted with an inpatient status. 3. We will consult oncology to follow her for her cancer needs and treatment regimens. 4. She received Rocephin IV and we will continue that. 5. Heparin drip is per protocol. 6. Tylenol for any pain or fever. 7. She is currently on IV fluids for hydration, normal saline at 100 cc an hour. 8. We will re-evaluate her labs in the morning. 9. She will be on a heart healthy diet. 10. O2 as warranted. 11. DVT prophylaxis 12. Pepcid for her GERD. To my knowledge, the patient is full code, full aggressive care and we will continue to follow. Dictated by: YOSEPH Heath Joshua Crespo MD JP/NICKOLAS /8:44 AM /9:11 AM pt seen and examined as above chart was reviewed meds and labs reviewed plan of care nina wood pt BELIA
[2017-03-08] MEDS ORDERED: ONDANSETRON ODT 4 MG TAB PO PRN (10:45)
[2017-03-08] MEDS ORDERED: PROCHLORPERAZINE MALEATE 10 MG TAB PO PRN (10:45)
[2017-03-08] MEDS ORDERED: ACETAMINOPHEN/HYDROcodone 325 MG/5 MG TAB PO PRN ×2 (10:45)
[2017-03-08] MEDS ORDERED: ALBUTEROL SULFATE 90 MCG/ACT HFA 8 GM INHALER INH PRN (10:45)
[2017-03-08] MEDS ORDERED: PROMETHAZINE HCL 25 MG TAB PO PRN (10:45)
[2017-03-08] MEDS ORDERED: RESP: ALBUTEROL 2.5 MG/IPRATROPIUM 0.5 MG NEB (PRN) INH (10:45)
[2017-03-08] MEDS ORDERED: DIPHENOXYLATE/ATROPINE 2.5 MG/0.025 MG TAB PO PRN (10:45)
[2017-03-08] MEDS ORDERED: OLOPATADINE OPTH EACH EYE SCH (10:45)
--- NOTE | 2017-03-08 11:13 | RADRPT ---
EXAM DATE/TIME: 03/08/2017 10:21 [facility] COMPARISON: US LEG BILATERAL VENOUS DOPPLER, August 04, 2016, 18:18. INDICATIONS : Bilateral leg swelling. MEDICAL HISTORY : Myocardial infarction. Stroke. Hypercholesterolemia. CAD. CHF. Hyperlipemia. A-fib. COPD. Lung cancer . PAD. GERD. Osteoporosis. SURGICAL HISTORY : Tonsillectomy.CABG Hysterectomy.Craniotomy. Cholecystectomy. ENCOUNTER: Initial ACUITY: 1 day PAIN SCORE: 3/10 LOCATION: Bilateral legs. TECHNIQUE: Venous ultrasound of the left and right leg was performed from the inguinal ligament to the proximal calf. Real-time, color Doppler and spectral tracing, compression and augmentation techniques were us ed. FINDINGS: RIGHT LEG: There is normal compressibility of the deep venous system from the inguinal region to the proximal ca lf. No echogenic clot is seen in the lumen of the common femoral, femoral, popliteal, and posterior tibial veins. There is a normal response of the venous system to proximal and distal augmentation an d respiration. LEFT LEG: There is normal compressibility of the deep venous system from the inguinal region to the proximal ca lf. No echogenic clot is seen in the lumen of the common femoral, femoral, popliteal, and posterior tibial veins. There is a normal response of the venous system to proximal and distal augmentation an d respiration. CONCLUSION: 1. No evidence of deep venous thrombosis. Taco Pack MD on March 08, 2017 at 11:08 Board Certified Radiologist. This report was verified electronically.
[2017-03-08 11:17] LABS: HEMATOCRIT 23.8 % (35.0-46.0); MEAN CELL VOLUME 87.5 FL (80.0-100.0); MEAN CORPUSCULAR HEMOGLOBIN 28.8 PG (27.0-34.0); MEAN CORPUSCULAR HGB CONC 32.9 % (32.0-36.0); PLATELET COUNT 33 TH/MM3 (150-450); RED BLOOD COUNT 2.71 MIL/MM3 (4.00-5.30); RED CELL DISTRIBUTION WIDTH 15.1 % (11.6-17.2)
[2017-03-08 11:18] LABS: REVIEW FLAG FINAL
[2017-03-08] MEDS: FERROUS SULFATE 325 MG (65 MG ELEMENTAL IRON) TAB PO SCH (11:54)
[2017-03-08] MEDS: LEVOTHYROXINE SODIUM 100 MCG TAB PO SCH (11:55)
[2017-03-08] MEDS: PANTOPRAZOLE SOD 40 MG DELAYED RELEASE TAB PO SCH (11:55)
[2017-03-08] MEDS: DILTIAZEM-CD 240 MG CAP ER PO SCH (11:55)
[2017-03-08] MEDS ORDERED: ALBUTEROL SULFATE 90 MCG/ACT HFA 18 GM INHALER INH PRN (12:45)
[2017-03-08] MEDS: TOLTERODINE TARTRATE 4 MG CAP LA PO SCH (13:15)
[2017-03-08] MEDS: LOSARTAN 25 MG TAB PO SCH (13:15)
[2017-03-08] MEDS: POTASSIUM CHLORIDE 8 MEQ CONTROLLED RELEASE TAB PO SCH (13:15)
--- NOTE | 2017-03-08 13:21 | EKG ---
Date Performed: 03/07/2017 Time Performed: 15:31:03 PTAGE: 71 years EKG: Sinus rhythm WITH FIRST DEGREE AV BLOCK RIGHT BUNDLE BRANCH BLOCK LEFT ANTERIOR FASCICULAR BLOCK ABNORMAL ECG INT ERPRETATION BASED ON A DEFAULT AGE OF 40 YEARS PREVIOUS TRACING : 08/04/2016 06.51 Compared to prior tracing no significant change DOCTOR: Pedro Faulkner Interpretating Date/Time 03/08/2017 13:20:52
--- NOTE | 2017-03-08 13:22 | EKG ---
Date Performed: 03/08/2017 Time Performed: 06:59:46 PTAGE: 71 years EKG: Sinus rhythm WITH FIRST DEGREE AV BLOCK RIGHT BUNDLE BRANCH BLOCK LEFT ANTERIOR FASCICULAR BLOCK POSSIBLE SEPTAL MYOCARDIAL INFARCTION , OF INDETERMINATE AGE ABNORMAL ECG PREVIOUS TRACING : 03/07/2017 15.31 Compared to prior tracing no significant change DOCTOR: Pedro Faulkner Interpretating Date/Time 03/08/2017 13:21:00
[2017-03-08] MEDS: cefTRIAXone INJ 1,000 MG in SODIUM CHLORIDE 0.9% INJ 100 ML IV SCH (19:41)
[2017-03-08] MEDS: BUDESONIDE-FORMOTEROL 160/4.5 MCG INHALER INH SCH (21:52)
[2017-03-08] MEDS: METOPROLOL TARTRATE 50 MG TAB PO SCH (21:54)
[2017-03-08] MEDS: DOXEPIN HCL 25 MG CAP PO SCH (21:54)
[2017-03-08] MEDS: ATORVASTATIN 20 MG TAB PO SCH (21:54)
[2017-03-08] MEDS: TEMAZEPAM 15 MG CAP PO PRN (21:55)
[2017-03-09] VITALS (11 sets, daily range): BP systolic 109–148; BP diastolic 48–65; PULSE 67–82; RESP 16–20; TEMP 95.6–98.9; O2SAT 94–98
[2017-03-09] MEDS ORDERED: diphenhydrAMINE HCL 25 MG CAP PO PRN ×2 (03:45→16:00)
[2017-03-09] MEDS ORDERED: ACETAMINOPHEN 325 MG TAB PO PRN ×2 (03:45→16:00)
[2017-03-09] MEDS: LEVOTHYROXINE SODIUM 100 MCG TAB PO SCH (05:09)
--- NOTE | 2017-03-09 05:41 | MB ---
cc: CHHAYA PAUL DATE OF 1945 DATE OF CONSULTATION March 08, 2017 REASON FOR CONSULTATION Patient with a history of Stage IV ceq-[id number] lung cancer who presents to the hospital with shortness of breath. CHIEF COMPLAINT Chest pain with deep inspiration. HISTORY OF PRESENT ILLNESS Ms. Burrell is a 71-year-old female who has a diagnosis of Stage IV [id number] lung cancer. She is currently being treated with IV nivolumab and has received one treatment thus far. She was originally diagnosed with lung cancer in 2014. 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 She underwent radiation treatments to the scapula. She has also had craniotomy and removal of the skull mass. She was previously being treated with carboplatin and Taxol and further treatments were stopped due to pancytopenia. Most recent CT scans showed stable disease. She presents to the emergency department with acute dyspnea and right-sided chest pain. She also was having nausea and had a fever. She states that she felt like she was trying to catch her breath. The pain is sharp in nature and is exacerbated by deep inspiration and expiration. The patient was admitted to the hospital. On admission, due to the high suspicion for DVT in the setting of malignancy, the patient underwent VQ scan which showed an intermediate probability for her pulmonary embolism. She was not given a CTA due to her history of ALLERGY TO CONTRAST. She was started on heparin. However, her platelets have been low. She has not had any bleeding. She has a very small bruise in her right upper arm. On admission the patient was found to be anemic with a hemoglobin of 8.5. This has further dropped to 7.8 this morning. She has remained afebrile. Her O2 sats have been in the mid-90s on nasal cannula. D-dimer was checked which was elevated. She also had Doppler ultrasound of the lower extremities, did not did not show any evidence of DVT. She had chest x-ray on admission which did not show any evidence of pneumonia. The patient denies any headaches, no dysphagia. No abdominal pain. No diarrhea or constipation. No lower extremity edema or pain. REVIEW OF SYSTEMS A comprehensive 14-point review of systems was completed which is negative except as described in the HPI. PAST MEDICAL HISTORY 1. Stage IV iym-ozpbb-xzqh lung cancer, 2. Anemia. 3. Atrial fibrillation. 4. Coronary artery disease. 5. History of CVA. 6. Gastroesophageal reflux disease. 7. Hypertension. 8. Peripheral vascular disease. 9. Osteoporosis. 10. COPD. 11. Tobacco abuse. 12. History of [place] in 2008. 13. Congestive heart failure. SURGICAL HISTORY 1. Iliofemoral stents with bypass in 2008. 2. Cholecystectomy. 3. Hysterectomy. 4. Craniotomy. 5. Angioplasty. MEDICATIONS Medications were reviewed in the EMR. ALLERGIES She is allergic to a number of foods and drugs including - BETADINE. CINNAMON. CONTRAST MEDIA. DEMEROL. DILAUDID. MORPHINE. NSAIDS. ANTIINFLAMMATORY AGENTS. TOMATOES. SOCIAL HISTORY She is . She lives in her home. Her daughter lives with her. She has a long history of tobacco abuse but quit in 2008. No alcohol or illicit drug use. FAMILY HISTORY Reviewed and is noncontributory to this admission. PHYSICAL EXAMINATION VITAL SIGNS: Blood pressure is 147/65, pulse is in the 70s, temperature 97.5, O2 sats are 97% on room air. GENERAL: Elderly female, chronically ill-appearing, cachectic, in mild distress. HEENT: Pupils are equal, round, reactive to light. EOMI. No oral thrush. No oral lesions. NECK: Supple. No JVD. No bruits. No lymphadenopathy. CHEST: Clear to auscultation bilaterally. CARDIAC: S1-S2, regular rate and rhythm. ABDOMEN: Soft, nontender, nondistended. Bowel sounds are present. EXTREMITIES: Without any edema, erythema or cyanosis. SKIN: Without any petechiae, lesion or bruises. NEURO: No focal deficits. PSYCHIATRIC: Mood and affect is appropriate. LABORATORY DATA WBCs 5, hemoglobin 7.8, MCV 87.5, platelet count 33. Serum chemistries shows sodium of 141, potassium 3.9, chloride 111, CO2 23.7, BUN 27, creatinine 1.11, GFR is 48, lactic acid is 1.4. Troponins less than 0.02. BNP is 215. Albumin is 3.1. D-dimer is elevated to 1.07. Urine nitrites are positive, small occult blood, leuko esterase is positive. IMAGING STUDIES Reviewed in the EMR, discussed in the HPI. ASSESSMENT AND PLAN This is a 71-year-old female with a history of Stage IV ygr-skrlp-[id number] lung cancer who was recently initiated on IV nivolumab as a second-line treatment. She has been treated with [place]-based therapy in the past. She presents with acute dyspnea and chest pain. 1. Acute dyspnea, chest pain on deep inspiration and expiration. D-dimers are elevated. VQ scan showed intermediate probability of pulmonary embolism. Doppler ultrasound of the lower extremities do not show a DVT. Given her history of pulmonary embolism, she has a high risk for developing PE. She continues to have the symptoms. I would proceed with getting a CTA. We will premedicate this patient with IV steroids and Benadryl prior to giving her contrast. She has a history of developing hives after contrast. She has had repeated imaging in the past with contrast and she does well with steroids and Benadryl. We will continue heparin GTT. If her platelet count drops below 30,000, we will stop heparin. 2. UTI. I agree with IV antibiotics. Preliminary urine cultures show gram-negative rods. 3. Acute anemia secondary to chemotherapy. Since she is symptomatic with dyspnea, I will proceed with giving her 1 unit of packed red blood cells. We will premedicate her with Tylenol and Benadryl. 4. Stage IV [id number] lung cancer. Further treatment will be given outpatient. Thank you for allowing me to participate in the care of this patient. I will continue to follow this patient along. MD HARRY Leslie/BUBBA /1:10 AM /5:23 AM
[2017-03-09 06:22] LABS: APTT (PATIENT) 43.2 SEC (24.3-30.1)
[2017-03-09] MEDS: SODIUM CHLOR 0.9% 1000 ML INJ 1,000 ML IV SCH (06:40)
[2017-03-09] MEDS ORDERED: DEXAMETHASONE SOD PHOS 20 MG/5 ML VIAL IV PUSH ONE (08:45)
[2017-03-09] MEDS ORDERED: diphenhydrAMINE HCL 50 MG/ML VIAL IM ONE (08:45)
[2017-03-09] MEDS ORDERED: FAMOTIDINE 20 MG TAB PO ONE ×2 (08:45→09:15)
[2017-03-09] MEDS: OLOPATADINE 0.7% EACH EYE SCH (09:00)
[2017-03-09] MEDS: SODIUM CHLORIDE 0.9% FLUSH 10 ML FLUSH IV FLUSH SCH ×2 (09:00→21:29)
[2017-03-09] MEDS: FERROUS SULFATE 325 MG (65 MG ELEMENTAL IRON) TAB PO SCH (09:05)
[2017-03-09] MEDS: METOPROLOL TARTRATE 50 MG TAB PO SCH ×2 (09:05→21:28)
[2017-03-09] MEDS: DILTIAZEM-CD 240 MG CAP ER PO SCH (09:05)
[2017-03-09] MEDS: MULTIVITAMIN TAB PO SCH (09:05)
[2017-03-09] MEDS: PANTOPRAZOLE SOD 40 MG DELAYED RELEASE TAB PO SCH (09:06)
[2017-03-09] MEDS: LOSARTAN 25 MG TAB PO SCH (09:06)
[2017-03-09] MEDS: POTASSIUM CHLORIDE 8 MEQ CONTROLLED RELEASE TAB PO SCH (09:06)
[2017-03-09] MEDS: ASPIRIN EC 81 MG TABEC PO SCH (09:06)
[2017-03-09] MEDS: TOLTERODINE TARTRATE 4 MG CAP LA PO SCH (09:06)
[2017-03-09] MEDS: BUDESONIDE-FORMOTEROL 160/4.5 MCG INHALER INH SCH ×2 (09:07→21:29)
[2017-03-09] MEDS: HEPARIN-D5W INJ 250 ML IV SCH (09:16)
--- NOTE | 2017-03-09 12:24 | PD.ONC.PN ---
Subjective Subjective Remarks Breathing OK Concerned about heparin infusion Has had previous contrast when pre-medicated with no issues Objective Data Date Time Temp Pulse Resp B/P Pulse Ox O2 Delivery O2 Flow Rate FiO2 03/09/17 08:00 95.6 70 20 138/63 97 03/09/17 04:00 98.1 70 20 109/55 94 03/09/17 00:00 98.9 76 20 122/59 95 03/08/17 21:50 Nasal Cannula 2.00 03/08/17 20:17 80 03/08/17 20:00 97.5 79 20 147/65 97 03/08/17 19:27 96 Nasal Cannula 2.00 03/08/17 18:00 Nasal Cannula 2.00 03/08/17 16:00 96.8 78 18 138/62 96 03/08/17 15:40 16 03/09/17 03/09/17 03/09/17 07:00 15:00 23:00 Intake Total 220 ml Balance 220 ml Result Diagram: 03/08/17 1055 03/08/17 0330 Laboratory Results Laboratory Tests Test 03/09/17 03/09/17 02:00 05:00 Blood Type A POSITIVE Antibody Screen POSITIVE Activated Partial 43.2 SEC Thromboplast Time Culture Results Microbiology Date/Time Procedure Status Source Growth 03/07/17 15:25 Aerobic Blood Culture - Preliminary Resulted Blood Peripheral Gram Negative Corky 03/07/17 15:25 Anaerobic Blood Culture - Preliminary Resulted Gram Negative Corky 03/07/17 15:40 Aerobic Blood Culture - Preliminary Resulted Blood Peripheral NO GROWTH IN 2 DAYS 03/07/17 15:40 Anaerobic Blood Culture - Preliminary Resulted Gram Negative Corky 03/07/17 18:10 Urine Culture - Final Complete Urine Catheterized Urine Escherichia Coli Administered Medications Medications (Trade) Dose Ordered Sig/Priscila Route PRN Reason Start Time Stop Time Status Last Admin Dose Admin Heparin Sodium/ Dextrose 250 ml @ 0 mls/hr TITRATE IV 03/07/17 22:00 03/09/17 09:16 Sodium Chloride (NS 1000 ml Inj) 1,000 ml @ 100 mls/hr Q10H IV 03/07/17 22:02 03/09/17 06:40 Sodium Chloride (NS Flush) 2 ml BID IV FLUSH 03/08/17 09:00 03/08/17 09:15 Acetaminophen 650 mg 650 mg Q4H PRN PO TEMP > 100.4 AND/OR HEADACHE 03/07/17 22:15 03/08/17 22:00 Ceftriaxone Sodium/Sodium Chloride (Rocephin Inj/NS Inj) 100 ml @ 200 mls/hr Q24H IV 03/08/17 20:00 03/08/17 19:41 Aspirin (Ecotrin Ec) 81 mg DAILY PO 03/09/17 09:00 03/09/17 09:06 Atorvastatin Calcium (Lipitor) 20 mg HS PO 03/08/17 21:00 03/08/17 21:54 Diltiazem HCl (Cardizem Cd) 240 mg DAILY PO 03/08/17 10:45 03/09/17 09:05 Doxepin HCl (SINEquan) 25 mg HS PO 03/08/17 21:00 03/08/17 21:54 Ferrous Sulfate (Ferrous Sulfate) 325 mg DAILY PO 03/08/17 10:45 03/09/17 09:05 Levothyroxine Sodium (Synthroid) 100 mcg DAILY@06 PO 03/08/17 10:45 03/09/17 05:09 Losartan Potassium (Cozaar) 25 mg DAILY PO 03/08/17 10:45 03/09/17 09:06 Metoprolol Tartrate (Lopressor) 50 mg BID PO 03/08/17 21:00 03/09/17 09:05 Multivitamins (Theragran) 1 tab DAILY PO 03/09/17 09:00 03/09/17 09:05 Pantoprazole Sodium (Protonix) 40 mg DAILY PO 03/08/17 10:45 03/09/17 09:06 Potassium Chloride (KCl) 8 meq DAILY PO 03/08/17 10:45 03/09/17 09:06 Temazepam (Restoril) 15 mg HS PRN PO INSOMNIA 03/08/17 10:45 03/08/17 21:55 Tolterodine Tartrate (Detrol La) 4 mg DAILY PO 03/08/17 11:15 03/09/17 09:06 Budesonide/ Formoterol Fumarate (Symbicort 160-4.5 Inh) 2 puff BID INH 03/08/17 21:00 03/09/17 09:07 Objective Remarks GENERAL: Older female, sitting up in bed in no distress. SKIN: Warm and dry. HEAD: Normocephalic. EYES: No injection or drainage. NECK: Supple, trachea midline. CARDIOVASCULAR: Regular rate and rhythm without murmurs. RESPIRATORY: Fine crackles in bases. GASTROINTESTINAL: Abdomen soft, non-tender, nondistended. EXTREMITIES: No edema. NEUROLOGICAL: A&Ox3. Moving all extremities. Assessment/Plan Problem List: (1) Shortness of breath Status: Acute Plan: -- Concern for pulmonary embolism with elevated risk factor due to cancer -- On heparin gtt -- VQ scan showed intermediate probability -- CTA ordered Assessment 71 y/o female with hx of stage 4 lung cancer admitted with dyspnea Plan 1. Plan for 13 hour prep for CTA. Discussed with Dr Lacey. Pt has had contrast with pre-meds in the past and did fine. 2. Will transfuse 1 unit PRBC's for hgb 7.8 and symptomatic. 3. Continue heparin gtt 4. Supportive care. Attending Statement The exam, history, and the medical decision-making described in the above note were completed with the assistance of the mid-level provider. I reviewed and agree with the findings presented. I attest that I had a [id number] encounter with the patient on the same day, and personally performed and documented my assessment and findings in the medical record. CTA after allergy prep completed. Continue Heparin transfuse 1 unit of pRBC d/w Vianney Marcelino March 09, 2017 12:18 Min Rojo MD March 09, 2017 23:50
--- NOTE | 2017-03-09 14:42 | HHI.PR ---
Subjective Remarks Resting in bed Alert oriented, conversational Heparin drip continues Patient is waiting to have the CAT scan Afebrile, vital signs normal trends Bilateral legs negative for DVT (Debra Baez) Objective Objective Results - Vital Signs Date Time Temp Pulse Resp B/P Pulse Ox O2 Delivery O2 Flow Rate FiO2 03/09/17 12:00 97.7 69 20 127/60 96 03/09/17 09:00 Nasal Cannula 2.00 03/09/17 09:00 67 03/09/17 08:00 95.6 70 20 138/63 97 03/09/17 04:00 98.1 70 20 109/55 94 03/09/17 00:00 98.9 76 20 122/59 95 03/08/17 21:50 Nasal Cannula 2.00 03/08/17 20:17 80 03/08/17 20:00 97.5 79 20 147/65 97 03/08/17 19:27 96 Nasal Cannula 2.00 03/08/17 18:00 Nasal Cannula 2.00 03/08/17 16:00 96.8 78 18 138/62 96 03/08/17 15:40 16 I/O 03/08/17 03/08/17 03/08/17 03/09/17 03/09/17 03/09/17 07:00 15:00 23:00 07:00 15:00 23:00 Intake Total 380 ml 960 ml 220 ml Balance 380 ml 960 ml 220 ml Intake Oral 380 ml 960 ml 220 ml # Voids 2 3 2 2 1 # Bowel Movements 1 2 2 (Debra Baez) Result Diagram: 03/08/17 1055 03/08/17 0330 ROS General: Fatigue (cancer patient), Weakness Cardiac: Chest Pain (right lower lung with inspiration) Pulmonary: SOB (occasional, pain with inspiration right lower lung) /[employer]SPORT [employer]NER: Other (UTI) (Debra Baez) Physical Exam Physical Exam PHYSICAL EXAMINATION GENERAL: This is a thin female who appears to be in no acute distress. She is alert and awake, conversational HEAD: Normocephalic, atraumatic, alopecia OROPHARYNGEAL: Oropharynx without erythema or edema. Moist NECK: Supple. CARDIAC: Regular rhythm, regular rate, S1 and S2 are heard. LUNGS: Diminished to auscultation right lower lobe. no wheeze, no rhonchi , low volumes ABDOMEN: Soft, nontender, Bowel sounds active EXTREMITIES: Right lower leg larger than left lower leg edema. Pulses palpable , NEUROLOGICAL: Patient mood and affect appropriate. SKIN:Warm, dry and turgor, Objective Remarks I'm just wait and have some more tests done (Debra Baez) A/P Assessment and Plan 1. Pulmonary emboli associated with shortness of breath, cough and fevers, nausea and vomiting. 2. UTI. 3. History of lung cancer with metastasis still receiving. Immunotherapy. 4. Hypertension 5. COPD 6. Dyspnea 7. GERD PLAN Vital signs reviewed normal trends for now, monitor every 4hr Aggressive treat her with a heparin drip. Possible pulmonary embolii CT scan to be done this afternoon for continued diagnostic studies, continue heparin drip until PE diagnosis is verified O2 therapy nasal cannula at 2 L Anemia secondary to cancer treatments and chronic disease. Today hemoglobin 7.8 will continue to monitor for any acute changes. Check CBC in the morning Activity, bed rest for now, patient may set on side of bed if she feels like it. No increased activity or out of bed without assistance consult oncology to follow her for her cancer needs and treatment regimens, appreciate input. Any further treatments or immunotherapy on hold for now until patient gets better, probably be done as outpatient Rocephin IV for probable UTI, will also be good coverage for any pneumonia if PE is ruled out. Encourage by mouth fluids, the patient states she no she doesn 't drink enough. Continue IV hydration especially while patient is in the hospital, acute kidney injury is improved today on labs DVT prophylaxis Pepcid for her GERD. (Debra Baez) Assessment and Plan Patient seen and examined as above Meds and labs reviewed Neurological data reviewed Plan of care discussed with [employer] PROFESSOR Discussed with patient For CT after premedication because of allergies. (Maykel Crespo MD) Debra Baez March 09, 2017 14:42 Maykel Crespo MD March 09, 2017 14:54
[2017-03-09] MEDS: ACETAMINOPHEN 325 MG TAB PO PRN (15:36)
[2017-03-09 15:58] LABS: APTT (PATIENT) 36.8 SEC (24.3-30.1)
[2017-03-09] MEDS: FAMOTIDINE 20 MG TAB PO SCH (21:28)
[2017-03-09] MEDS: cefTRIAXone INJ 1,000 MG in SODIUM CHLORIDE 0.9% INJ 100 ML IV SCH (21:28)
[2017-03-09] MEDS: predniSONE 50 MG TAB PO SCH (21:28)
[2017-03-09] MEDS: ATORVASTATIN 20 MG TAB PO SCH (21:29)
[2017-03-09] MEDS: DOXEPIN HCL 25 MG CAP PO SCH (21:29)
[2017-03-09] MEDS: TEMAZEPAM 15 MG CAP PO PRN (21:34)
[2017-03-10] VITALS (8 sets, daily range): BP systolic 114–161; BP diastolic 54–69; PULSE 68–88; RESP 16–18; TEMP 95.8–98.2; O2SAT 94–97
[2017-03-10] MEDS: SODIUM CHLOR 0.9% 1000 ML INJ 1,000 ML IV SCH ×2 (00:02→10:50)
[2017-03-10] MEDS: predniSONE 50 MG TAB PO SCH ×2 (01:06→08:29)
[2017-03-10 04:27] LABS: HEMATOCRIT 27.6 % (35.0-46.0); MEAN CELL VOLUME 87.9 FL (80.0-100.0); MEAN CORPUSCULAR HEMOGLOBIN 30.3 PG (27.0-34.0); MEAN CORPUSCULAR HGB CONC 34.5 % (32.0-36.0); PLATELET COUNT 39 TH/MM3 (150-450); RED BLOOD COUNT 3.14 MIL/MM3 (4.00-5.30); RED CELL DISTRIBUTION WIDTH 14.8 % (11.6-17.2); WHITE BLOOD COUNT 3.7 TH/MM3 (4.0-11.0)
[2017-03-10 04:30] LABS: REVIEW FLAG FINAL
[2017-03-10 04:37] LABS: APTT (PATIENT) 41.7 SEC (24.3-30.1)
[2017-03-10 04:47] LABS: BICARBONATE 19.1 MEQ/L (21.0-32.0)
[2017-03-10] MEDS: LEVOTHYROXINE SODIUM 100 MCG TAB PO SCH (05:52)
[2017-03-10] MEDS ORDERED: diphenhydrAMINE HCL 50 MG CAP PO ONE (08:00)
[2017-03-10] MEDS: FERROUS SULFATE 325 MG (65 MG ELEMENTAL IRON) TAB PO SCH (08:30)
[2017-03-10] MEDS: FAMOTIDINE 20 MG TAB PO SCH ×2 (08:30→21:12)
[2017-03-10] MEDS: ASPIRIN EC 81 MG TABEC PO SCH (08:30)
[2017-03-10] MEDS: MULTIVITAMIN TAB PO SCH (08:30)
[2017-03-10] MEDS: METOPROLOL TARTRATE 50 MG TAB PO SCH ×2 (08:30→21:12)
[2017-03-10] MEDS: DILTIAZEM-CD 240 MG CAP ER PO SCH (08:30)
[2017-03-10] MEDS: POTASSIUM CHLORIDE 8 MEQ CONTROLLED RELEASE TAB PO SCH (08:30)
[2017-03-10] MEDS: BUDESONIDE-FORMOTEROL 160/4.5 MCG INHALER INH SCH ×2 (08:30→21:13)
[2017-03-10] MEDS: PANTOPRAZOLE SOD 40 MG DELAYED RELEASE TAB PO SCH (08:30)
[2017-03-10] MEDS: TOLTERODINE TARTRATE 4 MG CAP LA PO SCH (08:30)
[2017-03-10] MEDS: SODIUM CHLORIDE 0.9% FLUSH 10 ML FLUSH IV FLUSH SCH ×2 (08:30→21:12)
[2017-03-10] MEDS: LOSARTAN 25 MG TAB PO SCH (08:30)
[2017-03-10] MEDS: OLOPATADINE 0.7% EACH EYE SCH (08:33)
--- NOTE | 2017-03-10 09:13 | HHI.PR ---
Subjective Subjective Remarks right lower chest pain with deep breathing some coughing, minimal sputum no sob no fever on heparin gtt Review of Systems Constitutional Constitutional Remarks 12 point ROS completed, negative except as noted above Vitals/Results Intake & Output 03/09/17 03/09/17 03/10/17 15:00 23:00 07:00 Intake Total 480 ml 200 ml Balance 480 ml 200 ml Intake Oral 480 ml 200 ml # Voids 1 5 2 Vital Signs Vital Signs Date Time Temp Pulse Resp B/P Pulse Ox O2 Delivery O2 Flow Rate FiO2 03/10/17 08:51 96.6 86 18 151/69 95 03/10/17 08:35 Nasal Cannula 2.00 03/10/17 04:00 Nasal Cannula 2.00 03/10/17 04:00 97.5 75 18 114/55 94 03/10/17 00:00 96.8 68 18 119/59 95 03/10/17 00:00 Nasal Cannula 2.00 03/09/17 20:00 Nasal Cannula 2.00 03/09/17 20:00 98.0 82 19 148/65 98 03/09/17 20:00 80 03/09/17 17:32 96 Nasal Cannula 2.00 03/09/17 16:23 97.9 80 16 122/54 96 03/09/17 15:55 97.4 79 16 116/48 96 03/09/17 15:50 97.4 79 20 116/48 96 03/09/17 12:00 97.7 69 20 127/60 96 03/09/17 10:45 96 Nasal Cannula 2.00 CBC/BMP: 03/10/17 0400 03/10/17 0400 Lab Results Laboratory Tests Test 03/09/17 03/10/17 15:05 04:00 Activated Partial 36.8 SEC 41.7 SEC Thromboplast Time White Blood Count 3.7 TH/MM3 Red Blood Count 3.14 MIL/MM3 Hemoglobin 9.5 GM/DL Hematocrit 27.6 % Mean Corpuscular Volume 87.9 FL Mean Corpuscular Hemoglobin 30.3 PG Mean Corpuscular Hemoglobin 34.5 % Concent Red Cell Distribution Width 14.8 % Platelet Count 39 TH/MM3 Mean Platelet Volume 8.0 FL Sodium Level 145 MEQ/L Potassium Level 4.0 MEQ/L Chloride Level 115 MEQ/L Carbon Dioxide Level 19.1 MEQ/L Anion Gap 11 MEQ/L Blood Urea Nitrogen 15 MG/DL Creatinine 0.95 MG/DL Estimat Glomerular Filtration 58 ML/MIN Rate Random Glucose 142 MG/DL Calcium Level 7.4 MG/DL Protein Corrected Calcium 8.0 MG/DL Total Protein 6.0 GM/DL Physical Exam General General Appearance: Well Developed, No Acute Distress, Comfortable, Malnourished Eyes Eye Exam: Pupils Equal, Pupils Reactive Ears & Nose Ears & Nose Exam: Nasal Mucosa Leslie Throat Throat Exam: Oral Mucosa Leslie & Moist Neck Neck Exam: Neck Supple, Trachea Midline Pulmonary Resp Exam: Decreased Bases Cardiology CV Exam: Regular, Good Perfusion Gastrointestinal/Abdomen GI Exam: Soft, Non-Tender, Bowel Sounds Present, Non-Distended Musculoskeletal MS Exam: Joints Intact Integumentary Skin Exam: Warm, Dry Extremeties Extremities Exam: Pedal Pulses Palpable, Trace Edema Neurologic Neuro Exam: Alert, Awake, Oriented, No Focal Deficits Psychiatric Psych Exam: Appropriate Responses VTE Prophylaxis VTE Prophylaxis Meds: Heparin PUD Prophylasis PUD Remarks Pepcid Assessment/Plan Problem List: (1) Chest pain (2) CAD (coronary artery disease) (3) Right-sided chest pain (4) Urinary tract infection (5) Lung cancer Plan: NSCL (6) Anemia (7) Hx of craniotomy (8) HTN (hypertension) (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 pending continue Rocephin renal insuf creat better dec. IVF continue oxygen add duonebs PRN lactic acidosis continue IVF change to regular diet add boost enc. PO intake continue home meds continue with hep for dvt prophylaxis repeat labs in am D/W RN D/W Dr. Crespo D/W pt this pt was seen by myself and Dr. Crespo, this note is written on his behalf. Problem Qualifiers (1) Chest pain: Qualified Code: R07.1 - Chest pain on breathing (2) CAD (coronary artery disease): Qualified Code: I25.10 - Coronary artery disease involving [place] coronary artery of [place] heart without angina pectoris (3) Urinary tract infection: Qualified Code: N39.0 - Urinary tract infection without hematuria, site unspecified (4) Anemia: (5) HTN (hypertension): Qualified Code: I10 - Essential hypertension (6) COPD (chronic obstructive pulmonary disease) with emphysema: Qualified Code: J43.9 - Pulmonary emphysema, unspecified emphysema type Marisela Vasquez March 10, 2017 09:13
[2017-03-10] MEDS ORDERED: IOHEXOL 350 MG/ML 10 ML VIAL (for RAD DIAG) IV ONE (09:50)
--- NOTE | 2017-03-10 10:23 | RADRPT ---
EXAM DATE/TIME: 03/10/2017 09:41 [place] COMPARISON: CT PULMONARY ANGIOGRAM, August 05, 2016, 1:18. INDICATIONS : Right side chest pain, increased shortness of breath. IV CONTRAST: 73 cc Omnipaque 350 (iohexol) IV RADIATION DOSE: 5.91 CTDIvol (mGy) MEDICAL HISTORY : Carcinoma, lung. Cardiovascular disease Hypertension. SURGICAL HISTORY : Cholecystectomy. ENCOUNTER: Initial ACUITY: 1 day PAIN SCALE: 5/10 LOCATION: Right upper chest TECHNIQUE: Volumetric scanning of the chest was performed using a pulmonary embolism protocol MIP images were re constructed. Using automated exposure control and adjustment of the mA and/or kV according to patien t size, radiation dose was kept as low as reasonably achievable to obtain optimal diagnostic quality images. FINDINGS: Examination of the pulmonary vasculature demonstrates good filling of the main, lobar and segmental b ranches. There are no filling defects to suggest pulmonary embolism. Multiplanar reconstructions are also unremarkable. There is severe emphysema evolving both upper lobes. There is a lobular mass in the left upper lobe m easuring 2 CM by 1.5 CM with spiculated density laterally which may reflect post therapy change. Ther e is a new 2.5 cm mass in the superior segment of the right lower lobe which may reflect malignancy. Small bilateral effusions and bibasilar atelectasis are present. There is generalized thyromegaly characteristic of goiter. There are enlarged precarinal nodes unchan ged from the prior study. There is a 2 cm nodule in the left adrenal gland unchanged. The spleen geronimo ins enlarged. CONCLUSION: 1. No evidence of pulmonary embolism. 2. Stable left upper lobe mass with new 2.5 cm mass in the right lower lobe. Malignancy is not exclud ed. 3. Severe emphysema Taco Pack MD on March 10, 2017 at 10:02 Board Certified Radiologist. This report was verified electronically.
[2017-03-10] MEDS: RESP: ALBUTEROL 2.5 MG/IPRATROPIUM 0.5 MG NEB (PRN) NEB ×2 (11:46→20:52)
--- NOTE | 2017-03-10 14:42 | PD.ONC.PN ---
Subjective Subjective Remarks Afebrile overnight. Patient seen at 12noon, late entry. She is just back from [facility] and resting comfortably. No complaints. Objective Data Date Time Temp Pulse Resp B/P Pulse Ox O2 Delivery O2 Flow Rate FiO2 03/10/17 12:00 97.1 75 16 147/65 96 03/10/17 11:48 97 Nasal Cannula 2.00 03/10/17 08:51 96.6 86 18 151/69 95 03/10/17 08:35 Nasal Cannula 2.00 03/10/17 04:00 Nasal Cannula 2.00 03/10/17 04:00 97.5 75 18 114/55 94 03/10/17 00:00 96.8 68 18 119/59 95 03/10/17 00:00 Nasal Cannula 2.00 03/09/17 20:00 Nasal Cannula 2.00 03/09/17 20:00 98.0 82 19 148/65 98 03/09/17 20:00 80 03/09/17 17:32 96 Nasal Cannula 2.00 03/09/17 16:23 97.9 80 16 122/54 96 03/09/17 15:55 97.4 79 16 116/48 96 03/09/17 15:50 97.4 79 20 116/48 96 03/10/17 03/10/17 03/10/17 07:00 15:00 23:00 Intake Total 200 ml Balance 200 ml Result Diagram: 03/10/17 0400 03/10/17 0400 Laboratory Results Laboratory Tests Test 03/09/17 03/10/17 15:05 04:00 Activated Partial 36.8 SEC 41.7 SEC Thromboplast Time White Blood Count 3.7 TH/MM3 Red Blood Count 3.14 MIL/MM3 Hemoglobin 9.5 GM/DL Hematocrit 27.6 % Mean Corpuscular Volume 87.9 FL Mean Corpuscular Hemoglobin 30.3 PG Mean Corpuscular Hemoglobin 34.5 % Concent Red Cell Distribution Width 14.8 % Platelet Count 39 TH/MM3 Mean Platelet Volume 8.0 FL Sodium Level 145 MEQ/L Potassium Level 4.0 MEQ/L Chloride Level 115 MEQ/L Carbon Dioxide Level 19.1 MEQ/L Anion Gap 11 MEQ/L Blood Urea Nitrogen 15 MG/DL Creatinine 0.95 MG/DL Estimat Glomerular Filtration 58 ML/MIN Rate Random Glucose 142 MG/DL Calcium Level 7.4 MG/DL Protein Corrected Calcium 8.0 MG/DL Total Protein 6.0 GM/DL Culture Results Microbiology Date/Time Procedure Status Source Growth 03/07/17 15:25 Aerobic Blood Culture - Final Complete Blood Peripheral Escherichia Coli 03/07/17 15:25 Anaerobic Blood Culture - Final Complete Escherichia Coli 03/07/17 15:40 Aerobic Blood Culture - Preliminary Resulted Blood Peripheral NO GROWTH IN 3 DAYS 03/07/17 15:40 Anaerobic Blood Culture - Final Resulted Escherichia Coli 03/07/17 18:10 Urine Culture - Final Complete Urine Catheterized Urine Escherichia Coli Administered Medications Medications (Trade) Dose Ordered Sig/Priscila Route PRN Reason Start Time Stop Time Status Last Admin Dose Admin Sodium Chloride (NS 1000 ml Inj) 1,000 ml @ 50 mls/hr Q20H IV 03/07/17 22:02 03/09/17 06:40 Sodium Chloride (NS Flush) 2 ml BID IV FLUSH 03/08/17 09:00 03/09/17 21:29 Acetaminophen 650 mg 650 mg Q4H PRN PO TEMP > 100.4 AND/OR HEADACHE 03/07/17 22:15 03/09/17 15:36 Ceftriaxone Sodium/Sodium Chloride (Rocephin Inj/NS Inj) 100 ml @ 200 mls/hr Q24H IV 03/08/17 20:00 03/09/17 21:28 Aspirin (Ecotrin Ec) 81 mg DAILY PO 03/09/17 09:00 03/10/17 08:30 Atorvastatin Calcium (Lipitor) 20 mg HS PO 03/08/17 21:00 03/09/17 21:29 Diltiazem HCl (Cardizem Cd) 240 mg DAILY PO 03/08/17 10:45 03/10/17 08:30 Doxepin HCl (SINEquan) 25 mg HS PO 03/08/17 21:00 03/09/17 21:29 Ferrous Sulfate (Ferrous Sulfate) 325 mg DAILY PO 03/08/17 10:45 03/10/17 08:30 Levothyroxine Sodium (Synthroid) 100 mcg DAILY@06 PO 03/08/17 10:45 03/10/17 05:52 Losartan Potassium (Cozaar) 25 mg DAILY PO 03/08/17 10:45 03/10/17 08:30 Metoprolol Tartrate (Lopressor) 50 mg BID PO 03/08/17 21:00 03/10/17 08:30 Multivitamins (Theragran) 1 tab DAILY PO 03/09/17 09:00 03/10/17 08:30 Pantoprazole Sodium (Protonix) 40 mg DAILY PO 03/08/17 10:45 03/10/17 08:30 Potassium Chloride (KCl) 8 meq DAILY PO 03/08/17 10:45 03/10/17 08:30 Temazepam (Restoril) 15 mg HS PRN PO INSOMNIA 03/08/17 10:45 03/09/17 21:34 Tolterodine Tartrate (Detrol La) 4 mg DAILY PO 03/08/17 11:15 03/10/17 08:30 Budesonide/ Formoterol Fumarate (Symbicort 160-4.5 Inh) 2 puff BID INH 03/08/17 21:00 03/10/17 08:30 Famotidine (Pepcid) 10 mg BID PO 03/09/17 21:00 03/10/17 08:30 Objective Remarks GENERAL: Elderly female, sitting up on side of bed in nad. SKIN: Warm and dry. HEAD: Normocephalic. EYES No injection or drainage. NECK: Supple, trachea midline. CARDIOVASCULAR: Regular rate and rhythm RESPIRATORY: scattered ronchi. on 2L O2 via NC GASTROINTESTINAL: Abdomen soft, non-tender, nondistended. EXTREMITIES: No cyanosis. mild pitting edema ble MUSCULOSKELETAL: Adequate muscle tone. NEUROLOGICAL: No obvious focal deficit. Awake, alert, and oriented x3. Assessment/Plan Problem List: (1) Shortness of breath Status: Acute Plan: -- CTA showed no PE. new 2.5cm mass right lower lobe and severe emphysema --heparin stopped. Assessment 71 y/o female with hx of stage 4 lung cancer admitted with dyspnea Plan 1. monitor CBC 2. stop heparin gtt 2. supportive care Attending Statement The exam, history, and the medical decision-making described in the above note were completed with the assistance of the mid-level provider. I reviewed and agree with the findings presented. I attest that I had a [id number] encounter with the patient on the same day, and personally performed and documented my assessment and findings in the medical record. CTA negative for PE. D/C heparin OK to D/C home in AM F/U with me in clinic in 1 week. Mildred Goff March 10, 2017 14:42 Min Rojo MD March 10, 2017 22:53
[2017-03-10] MEDS: ACETAMINOPHEN 325 MG TAB PO PRN (19:42)
[2017-03-10] MEDS: ATORVASTATIN 20 MG TAB PO SCH (21:11)
[2017-03-10] MEDS: cefTRIAXone INJ 1,000 MG in SODIUM CHLORIDE 0.9% INJ 100 ML IV SCH (21:12)
[2017-03-10] MEDS: TEMAZEPAM 15 MG CAP PO PRN (21:12)
[2017-03-10] MEDS: DOXEPIN HCL 25 MG CAP PO SCH (21:17)
[2017-03-11] VITALS: BP 113/59; PULSE 75; RESP 16; TEMP 97; O2SAT 95
[2017-03-11 04:00] VITALS: BP 115/50; PULSE 79; RESP 16; TEMP 97.3; O2SAT 95
[2017-03-11] MEDS: LEVOTHYROXINE SODIUM 100 MCG TAB PO SCH (05:19)
[2017-03-11] MEDS: SODIUM CHLOR 0.9% 1000 ML INJ 1,000 ML IV SCH (06:50)
[2017-03-11 06:55] LABS: HEMATOCRIT 27.6 % (35.0-46.0); MEAN CELL VOLUME 89.4 FL (80.0-100.0); MEAN CORPUSCULAR HEMOGLOBIN 29.5 PG (27.0-34.0); PLATELET COUNT 39 TH/MM3 (150-450); RED BLOOD COUNT 3.09 MIL/MM3 (4.00-5.30); RED CELL DISTRIBUTION WIDTH 15.3 % (11.6-17.2)
[2017-03-11 07:00] LABS: REVIEW FLAG FINAL
[2017-03-11 07:29] LABS: BICARBONATE 20.6 MEQ/L (21.0-32.0); POTASSIUM 3.8 MEQ/L (3.5-5.1)
[2017-03-11 08:00] VITALS: BP 134/63; PULSE 84; RESP 18; TEMP 97.6; O2SAT 96
[2017-03-11 08:10] VITALS: PULSE 73
[2017-03-11 08:53] VITALS: O2SAT 96
[2017-03-11] MEDS: OLOPATADINE 0.7% EACH EYE SCH (09:00)
[2017-03-11] MEDS: BUDESONIDE-FORMOTEROL 160/4.5 MCG INHALER INH SCH (09:35)
[2017-03-11] MEDS: LOSARTAN 25 MG TAB PO SCH (09:37)
[2017-03-11] MEDS: FAMOTIDINE 20 MG TAB PO SCH (09:37)
[2017-03-11] MEDS: MULTIVITAMIN TAB PO SCH (09:38)
[2017-03-11] MEDS: FERROUS SULFATE 325 MG (65 MG ELEMENTAL IRON) TAB PO SCH (09:38)
[2017-03-11] MEDS: PANTOPRAZOLE SOD 40 MG DELAYED RELEASE TAB PO SCH (09:38)
[2017-03-11] MEDS: DILTIAZEM-CD 240 MG CAP ER PO SCH (09:38)
[2017-03-11] MEDS: POTASSIUM CHLORIDE 8 MEQ CONTROLLED RELEASE TAB PO SCH (09:38)
[2017-03-11] MEDS: TOLTERODINE TARTRATE 4 MG CAP LA PO SCH (09:38)
[2017-03-11] MEDS: METOPROLOL TARTRATE 50 MG TAB PO SCH (09:38)
[2017-03-11] MEDS: ASPIRIN EC 81 MG TABEC PO SCH (09:38)
[2017-03-11] MEDS: SODIUM CHLORIDE 0.9% FLUSH 10 ML FLUSH IV FLUSH SCH (09:42)
--- NOTE | 2017-03-11 09:50 | HHI.PR ---
Subjective Remarks PT IS FEELING BETTER ' BREATHING BETTER NO PAIN ROS FOR 12 POINT SYSTEM IS UNREMARKABLE Objective Objective Results - Vital Signs Date Time Temp Pulse Resp B/P Pulse Ox O2 Delivery O2 Flow Rate FiO2 03/11/17 08:53 96 Nasal Cannula 2.00 03/11/17 04:00 97.3 79 16 115/50 95 03/11/17 00:00 97.0 75 16 113/59 95 03/10/17 21:13 Nasal Cannula 2.00 03/10/17 20:52 97 Nasal Cannula 2.00 03/10/17 20:00 95.8 81 18 129/54 95 03/10/17 20:00 88 03/10/17 16:00 98.2 82 18 161/69 96 03/10/17 12:00 97.1 75 16 147/65 96 03/10/17 11:48 97 Nasal Cannula 2.00 I/O 03/10/17 03/10/17 03/10/17 03/11/17 03/11/17 03/11/17 07:00 15:00 23:00 07:00 15:00 23:00 Intake Total 200 ml 240 ml 480 ml Balance 200 ml 240 ml 480 ml Intake Oral 200 ml 240 ml 480 ml # Voids 2 4 1 4 # Bowel Movements 1 Result Diagram: 03/11/17 0555 03/11/17 0555 Other Results Laboratory Tests Test 03/11/17 05:55 White Blood Count 5.0 Red Blood Count 3.09 Hemoglobin 9.1 Hematocrit 27.6 Mean Corpuscular Volume 89.4 Mean Corpuscular Hemoglobin 29.5 Mean Corpuscular Hemoglobin 33.0 Concent Red Cell Distribution Width 15.3 Platelet Count 39 Mean Platelet Volume 8.2 Sodium Level 145 Potassium Level 3.8 Chloride Level 115 Carbon Dioxide Level 20.6 Anion Gap 9 Blood Urea Nitrogen 16 Creatinine 0.91 Estimat Glomerular Filtration 61 Rate Random Glucose 92 Calcium Level 7.9 Date/Time Procedure Status Source Growth 03/07/17 18:10 Urine Culture - Final Complete Urine Catheterized Urine Escherichia Coli 03/07/17 15:40 Aerobic Blood Culture - Preliminary Resulted Blood Peripheral NO GROWTH IN 3 DAYS 03/07/17 15:40 Anaerobic Blood Culture - Final Resulted Escherichia Coli 03/07/17 15:25 Aerobic Blood Culture - Final Complete Blood Peripheral Escherichia Coli 03/07/17 15:25 Anaerobic Blood Culture - Final Complete Escherichia Coli Physical Exam Physical Exam General General Appearance: Well Developed, No Acute Distress, Comfortable, Malnourished Eyes Eye Exam: Pupils Equal, Pupils Reactive Ears & Nose Ears & Nose Exam: Nasal Mucosa [place] Throat Throat Exam: Oral Mucosa [place] & Moist Neck Neck Exam: Neck Supple, Trachea Midline Pulmonary Resp Exam: Decreased Bases Cardiology CV Exam: Regular, Good Perfusion Gastrointestinal/Abdomen GI Exam: Soft, Non-Tender, Bowel Sounds Present, Non-Distended Musculoskeletal MS Exam: Joints Intact Integumentary Skin Exam: Warm, Dry Extremeties Extremities Exam: Pedal Pulses Palpable, Trace Edema Neurologic Neuro Exam: Alert, Awake, Oriented, No Focal Deficits Psychiatric Psych Exam: Appropriate Responses VTE Prophylaxis VTE Prophylaxis Meds: Heparin PUD Prophylasis PUD Remarks Pepcid A/P Assessment and Plan (1) Chest pain (2) CAD (coronary artery disease) (3) Right-sided chest pain (4) Urinary tract infection (5) Lung cancer Plan: NSCL (6) Anemia (7) Hx of craniotomy (8) HTN (hypertension) (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 No PE VQ scan intermediate prob off of Heparin gtt appreciate oncology input. ok to dc and he will follow anemia, Hgb 9.1, received PRBC HH stable UTI ecoli. urosepsis with bacteremia from admission BC- GNR E coli on Rocephin. dc on ceftin renal insuf creat better dec. IVF continue oxygen add duonebs PRN. pt use oxygen at home on prn basis lactic acidosis continue IVF regular diet add boost enc. PO intake continue home meds labs reviewd D/W RN D/W pt dc home with C to follow pcp and oncology Maykel Crespo MD March 11, 2017 09:50
[2017-03-11] MEDS ORDERED: CEFT500T3 PO (09:53)
--- NOTE | 2017-03-11 09:55 | HHI.FF ---
Face to Face Verification Diagnosis: (1) Shortness of breath (2) Lactic acidosis (3) Urinary tract infection (4) COPD (chronic obstructive pulmonary disease) with emphysema (5) Bacteremia due to Escherichia coli Physical Therapy Order: Evaluate and Treat Home Health Nursing Order: Oxygen administration education I have seen patient Mila Burrell on 03/11/17. My clinical findings support the need for the requested home health care services because: Ltd mobility - disease progression I certify that my clinical findings support that this patient is homebound because: Hx COPD- exertion dyspnea/weakness Maykel Crespo MD March 11, 2017 09:55
--- NOTE | 2017-03-11 12:28 | PD.ONC.PN ---
Subjective Subjective Remarks Afebrile overnight. patient resting comfortably in room. Wants to go home. States she is breathing well. Objective Data Date Time Temp Pulse Resp B/P Pulse Ox O2 Delivery O2 Flow Rate FiO2 03/11/17 08:53 96 Nasal Cannula 2.00 03/11/17 08:10 73 03/11/17 08:10 Nasal Cannula 2.00 03/11/17 08:00 97.6 84 18 134/63 96 03/11/17 04:00 97.3 79 16 115/50 95 03/11/17 00:00 97.0 75 16 113/59 95 03/10/17 21:13 Nasal Cannula 2.00 03/10/17 20:52 97 Nasal Cannula 2.00 03/10/17 20:00 95.8 81 18 129/54 95 03/10/17 20:00 88 03/10/17 16:00 98.2 82 18 161/69 96 Result Diagram: 03/11/17 0555 03/11/17 0555 Laboratory Results Laboratory Tests Test 03/11/17 05:55 White Blood Count 5.0 TH/MM3 Red Blood Count 3.09 MIL/MM3 Hemoglobin 9.1 GM/DL Hematocrit 27.6 % Mean Corpuscular Volume 89.4 FL Mean Corpuscular Hemoglobin 29.5 PG Mean Corpuscular Hemoglobin 33.0 % Concent Red Cell Distribution Width 15.3 % Platelet Count 39 TH/MM3 Mean Platelet Volume 8.2 FL Sodium Level 145 MEQ/L Potassium Level 3.8 MEQ/L Chloride Level 115 MEQ/L Carbon Dioxide Level 20.6 MEQ/L Anion Gap 9 MEQ/L Blood Urea Nitrogen 16 MG/DL Creatinine 0.91 MG/DL Estimat Glomerular Filtration 61 ML/MIN Rate Random Glucose 92 MG/DL Calcium Level 7.9 MG/DL Administered Medications Medications (Trade) Dose Ordered Sig/Priscila Route PRN Reason Start Time Stop Time Status Last Admin Dose Admin Sodium Chloride (NS 1000 ml Inj) 1,000 ml @ 50 mls/hr Q20H IV 03/07/17 22:02 03/09/17 06:40 Sodium Chloride (NS Flush) 2 ml BID IV FLUSH 03/08/17 09:00 03/11/17 09:42 Acetaminophen 650 mg 650 mg Q4H PRN PO TEMP > 100.4 AND/OR HEADACHE 03/07/17 22:15 03/10/17 19:42 Ceftriaxone Sodium/Sodium Chloride (Rocephin Inj/NS Inj) 100 ml @ 200 mls/hr Q24H IV 03/08/17 20:00 03/10/17 21:12 Aspirin (Ecotrin Ec) 81 mg DAILY PO 03/09/17 09:00 03/11/17 09:38 Atorvastatin Calcium (Lipitor) 20 mg HS PO 03/08/17 21:00 03/10/17 21:11 Diltiazem HCl (Cardizem Cd) 240 mg DAILY PO 03/08/17 10:45 03/11/17 09:38 Doxepin HCl (SINEquan) 25 mg HS PO 03/08/17 21:00 03/10/17 21:17 Ferrous Sulfate (Ferrous Sulfate) 325 mg DAILY PO 03/08/17 10:45 03/11/17 09:38 Levothyroxine Sodium (Synthroid) 100 mcg DAILY@06 PO 03/08/17 10:45 03/11/17 05:19 Losartan Potassium (Cozaar) 25 mg DAILY PO 03/08/17 10:45 03/11/17 09:37 Metoprolol Tartrate (Lopressor) 50 mg BID PO 03/08/17 21:00 03/11/17 09:38 Multivitamins (Theragran) 1 tab DAILY PO 03/09/17 09:00 03/11/17 09:38 Pantoprazole Sodium (Protonix) 40 mg DAILY PO 03/08/17 10:45 03/11/17 09:38 Potassium Chloride (KCl) 8 meq DAILY PO 03/08/17 10:45 03/11/17 09:38 Temazepam (Restoril) 15 mg HS PRN PO INSOMNIA 03/08/17 10:45 03/10/17 21:12 Tolterodine Tartrate (Detrol La) 4 mg DAILY PO 03/08/17 11:15 03/11/17 09:38 Budesonide/ Formoterol Fumarate (Symbicort 160-4.5 Inh) 2 puff BID INH 03/08/17 21:00 03/11/17 09:35 Albuterol Sulfate (Ventolin Hfa Inh) 2 puff Q4H PRN INH SHORTNESS OF BREATH 03/08/17 12:45 03/11/17 09:36 Famotidine (Pepcid) 10 mg BID PO 03/09/17 21:00 03/11/17 09:37 Objective Remarks GENERAL: Elderly female, sitting upright in bed in nad. SKIN: Warm and dry. HEAD: Normocephalic. EYES No injection or drainage. NECK: Supple, trachea midline. CARDIOVASCULAR: Regular rate and rhythm RESPIRATORY: on 2L O2 via NC. scattered rhonchi. GASTROINTESTINAL: Abdomen soft, non-tender, nondistended. EXTREMITIES: No cyanosis. mild edema at bilateral ankles. MUSCULOSKELETAL: Adequate muscle tone. NEUROLOGICAL: No obvious focal deficit. Awake, alert, and oriented x3. Assessment/Plan Problem List: (1) Shortness of breath Status: Acute Plan: -- CTA showed no PE. new 2.5cm mass right lower lobe and severe emphysema --heparin stopped. Assessment 71 y/o female with hx of stage 4 lung cancer admitted with dyspnea Plan 1. monitor CBC 2. clear for discharge 3. patient advised to follow up with Dr. Rojo within a week of discharge, will discuss further treatment at that time. Attending Statement The exam, history, and the medical decision-making described in the above note were completed with the assistance of the mid-level provider. I reviewed and agree with the findings presented. I attest that I had a [id number] encounter with the patient on the same day, and personally performed and documented my assessment and findings in the medical record. Mildred Goff March 11, 2017 12:28 Min Rojo MD March 11, 2017 23:20
--- NOTE | 2017-04-11 18:40 | HHI.DS ---
Discharge Summary Admission Date March 07, 2017 at 20:47 Discharge Date: March 11, 2017 Admitting Diagnosis right sided cp, intermediate prob PE on VQ Brief History This was a 71-year-old white female who woke up to feed her cats on the at 0300 and began having an acute onset of right sided chest discomfort. She stated that it was associated with shortness of breath The patient went back and laid back down, but became nauseated and had dry heaves yesterday a.m., the day of admission. The patient also complained of some fevers and had shortness of breath off and on during the day. Her daughter lived with her and assists her with her care. She was diagnosed in April of 2015 with lung cancer and treatment was initiated again in April of 2016 for the lung cancer with metastasis. The patient had been through six rounds of chemotherapy and is currently doing immunotherapy. Her next dose is due Tuesday. The patient denied any other chest pain besides the right sided chest pain that is related to her shortness of breath. The patient had an occasional cough. No further nausea or vomiting. No diarrhea. No constipation. Imaging Last Impressions CT Angiography 03/09/17 0000 Signed Impressions: Service Date/Time: February 09:41 - CONCLUSION: 1. No evidence of pulmonary embolism. 2. Stable left upper lobe mass with new 2.5 cm mass in the right lower lobe. Malignancy is not excluded. 3. Severe emphysema Taco Pack MD Lower Extremity Ultrasound 03/08/17 0000 Signed Impressions: Service Date/Time: Wednesday, March 08, 2017 10:21 - CONCLUSION: 1. No evidence of deep venous thrombosis. Taco Pack MD Lung Scan-VQ Nuclear Medicine 03/07/17 1801 Signed Impressions: Service Date/Time: Tuesday, March 07, 2017 19:52 - CONCLUSION: Intermediate probability for pulmonary embolism. Rodney Vivar MD Chest X-Ray 03/07/17 1524 Signed Impressions: Service Date/Time: Tuesday, March 07, 2017 15:49 - CONCLUSION: Mild hyperinflation without pneumothorax. Jose Lacey MD FACR PE at Discharge General Appearance: Well Developed, No Acute Distress, Comfortable, Malnourished Eyes Eye Exam: Pupils Equal, Pupils Reactive Ears & Nose Ears & Nose Exam: Nasal Mucosa [place] Throat Throat Exam: Oral Mucosa [place] & Moist Neck Neck Exam: Neck Supple, Trachea Midline Pulmonary Resp Exam: Decreased Bases Cardiology CV Exam: Regular, Good Perfusion Gastrointestinal/Abdomen GI Exam: Soft, Non-Tender, Bowel Sounds Present, Non-Distended Musculoskeletal MS Exam: Joints Intact Integumentary Skin Exam: Warm, Dry Extremeties Extremities Exam: Pedal Pulses Palpable, Trace Edema Neurologic Neuro Exam: Alert, Awake, Oriented, No Focal Deficits Psychiatric Psych Exam: Appropriate Responses VTE Prophylaxis VTE Prophylaxis Meds: Heparin PUD Prophylasis PUD Remarks Pepcid Hospital Course These are the diagnoses that were used to treat this patient during this hospital stay (1) Chest pain (2) CAD (coronary artery disease) (3) Right-sided chest pain (4) Urinary tract infection (5) Lung cancer Plan: NSCL (6) Anemia (7) Hx of craniotomy (8) HTN (hypertension) (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 No PE VQ scan intermediate prob continue Heparin gtt for anticoagulation Cardiac event was ruled out appreciate oncology input and consultation for patient's immediate cancer needs and treatment regimens anemia, Hgb down to 7.2, received PRBC and stabilized HH stable, monitored throughout the hospital stay UTI showed ecoli organism BC- GNR sens. pending continue Rocephin IV was used to stabilize, patient responded well to treatment regimen and was more alert and appetite picked up renal insufficiency, patient received adequate hydration and IV fluids creat better and responded to treatment dec. IVF, once patient's creatinine was stabilized continue oxygen add duonebs PRN lactic acidosis continue IVF, resolved after first 24-48 hours change to regular diet add boost enc. PO intake continue with hep for dvt prophylaxis Patient's home meds were continued and was medically stabilized and PE was ruled out Patient is to follow-up with his oncologist, and is now medically stable for discharge. Patient was seen and examined day of discharge per Dr. Crespo labs and meds reviewed plan of care dw conciliator , patient and RN sharif consultants help Pt Condition on Discharge: Good Discharge Disposition: Disch w/ Home Health Serv Discharge Instructions DIET: Follow Instructions for: As Tolerated, No Restrictions Activities you can perform: Weight Bearing as Juan M Follow up Referrals: Oncology - 3-5 Days PCP Follow-up - 1 Week New Medications: Cefuroxime (Ceftin) 500 Mg Tab 500 MG PO BID Infection #20 Ref 0 TAB Continued Medications: Albuterol 8.5 GM Inh (Proair Hfa 8.5 GM Inh) 90 Mcg/Act Aer 2 PUFF INH Q4H 108 mcg/actuation PRN SHORTNESS OF BREATH #1 Ref [address] (Aspir-81) 81 Mg Tabdr 81 MG PO DAILY Atorvastatin (Atorvastatin) 20 Mg Tab 20 MG PO HS Cholesterol Management #30 Ref 0 TAB Diltiazem CD 24 HR (Diltiazem CD 24 HR) 240 Mg Caper 240 MG PO DAILY #30 Ref 0 CAP Diphenoxylate-Atropine (Lomotil) 2.5-0.025 Mg Tab 1 TAB PO TID PRN DIARRHEA Ref 0 TAB Doxepin (Doxepin) 25 Mg Cap 25 MG PO HS #30 Ref 0 CAP Ferrous Sulfate (Ferrous Sulfate) 325 Mg Tab 325 MG PO DAILY Nutritional Supplement #30 Ref 0 TAB Fesoterodine ER (Toviaz ER) 8 Mg Yandel 8 MG PO DAILY Overactive bladder Ref 0 TAB Fluticasone-Salmeterol Inh (Advair Diskus Inh) 250-50 Mcg/Blist Aer 1 PUFF INH BID Rinse mouth after use. #1 Ref 0 INHALER Hydrocodone-Acetaminophen (Lortab) 5-325 Mg Tab 1 TAB PO Q6H PRN PAIN Ref 0 TAB Hydrocodone-Acetaminophen (Lortab) 5-325 Mg Tab 1-2 TAB PO Q6H PRN PAIN #12 TAB Ipratropium-Albuterol Neb (Duoneb) 0.5-2.5 Mg/3 Ml Neb 1 NEBULE INH QID PRN SHORTNESS OF BREATH #120 Ref 0 NEBULE Levothyroxine (Levothyroxine) 100 Mcg Tab 100 MCG PO DAILY Thyroid #30 Ref 0 TAB Losartan (Losartan) 25 Mg Tab 25 MG PO DAILY Blood Pressure Management #30 Ref 0 TAB Metoprolol Tartrate (Metoprolol Tartrate) 50 Mg Tab 50 MG PO BID #60 Ref 0 TAB Multiple Vitamin (Multi Vitamin) 1 Tab Tab 1 TAB PO DAILY TAB Nivolumab (Opdivo) 40 Mg/4 Ml Inj 1 INJECTION IM DIRECTED Olopatadine Opth 0.7% (Pazeo Opth 0.7%) 0.7 % Drops 1 DROP EACH EYE DAILY Allergies #1 Ref 0 BOTTLE Ondansetron (Zofran) 4 Mg Tab 4-8 MG PO Q6HR PRN NAUSEA OR VOMITING Ref 0 TAB Pantoprazole (Pantoprazole) 40 Mg Tab 40 MG PO DAILY Reflux #30 Ref 0 TAB Potassium Chloride ER (Klor-Con 8) 8 Meq Tab 8 MEQ PO DAILY Electrolyte Replacement #30 Ref 0 TAB Prochlorperazine Maleate (Prochlorperazine Maleate) 10 Mg Tab 10 MG PO Q4H PRN NAUSEA OR VOMITING Ref 0 TAB Promethazine (Phenergan) 25 Mg Tab 25 MG PO Q6H PRN Nausea/Vomiting Ref 0 TAB Temazepam (Temazepam) 15 Mg Cap 15 MG PO HS PRN INSOMNIA Ref 0 CAP Zoledronic Acid Inj (Zometa Inj) 4 Mg/100 Ml Inj 4 MG IV MONTHLY Ref 0 Debra Fernando Apr 11, 2017 18:40
== END 2017-03-11 12:39 | disposition home or self-care (01) | DRG 176 ==
LOC: NEPE 15:05 → NEDA 20:47 → HOCA 03-08
PROVIDERS: ADMIT Specialist; ATTEND Specialist
DX: I26.99 Other pulmonary embolism without acute cor pulmonale (principal); N17.9 Acute kidney failure, unspecified; I11.0 Hypertensive heart disease with heart failure; C78.02 Secondary malignant neoplasm of left lung; C78.01 Secondary malignant neoplasm of right lung; E87.2 Acidosis; I50.9 Heart failure, unspecified; M41.9 Scoliosis, unspecified; N39.0 Urinary tract infection, site not specified; I25.810 Atherosclerosis of coronary artery bypass graft(s) without angina pectoris; B96.20 Unspecified Escherichia coli [E. coli] as the cause of diseases classified elsewhere; D64.81 Anemia due to antineoplastic chemotherapy; I48.91 Unspecified atrial fibrillation; Z95.1 Presence of aortocoronary bypass graft; J44.9 Chronic obstructive pulmonary disease, unspecified; K21.9 Gastro-esophageal reflux disease without esophagitis; T45.1X5A Adverse effect of antineoplastic and immunosuppressive drugs, initial encounter; Z85.118 Personal history of other malignant neoplasm of bronchus and lung; Z99.81 Dependence on supplemental oxygen; D69.6 Thrombocytopenia, unspecified; I25.2 Old myocardial infarction; I73.9 Peripheral vascular disease, unspecified; M81.0 Age-related osteoporosis without current pathological fracture; Z87.891 Personal history of nicotine dependence; Z86.73 Personal history of transient ischemic attack (TIA), and cerebral infarction without residual deficits
CPT/HCPCS: 36430; 71010; 71275; 78582; 80048; 80053; 81001; 82550; 83605; 83735; 83880; 84155; 84484; 85025; 85027; 85379; 85610; 85730; 86850; 86900; 86901; 86902; 86920; 86922; 87040; 87077; 87086; 87186; 87205; 93005; 93970; 94640; 94664; 96365; A9540; A9567; J0696; J1644; J7030; J7512; P9016; Q0163; Q9967

== ENCOUNTER 2017-10-12 10:55 | Day surgery (SDC) | payer MEDICARE, OTHER ==
[~2017-10-12] VITALS: Ht 167.6 cm; Wt 62.2 kg
[2017-10-12 09:06] LABS: AUTOMATED NEUTROPHIL # 5.3 TH/MM3 (1.8-7.7); BASOPHIL % 0.2 % (0.0-2.0); HEMATOCRIT 28.6 % (35.0-46.0); LYMPH % 10.3 % (9.0-44.0); LYMPHOCYTE # 0.7 TH/MM3 (1.0-4.8); MEAN CELL VOLUME 86.8 FL (80.0-100.0); MEAN CORPUSCULAR HEMOGLOBIN 29.7 PG (27.0-34.0); MEAN CORPUSCULAR HGB CONC 34.2 % (32.0-36.0); MONO % 8.6 % (0.0-8.0); NEUT % 80.9 % (16.0-70.0); PLATELET COUNT 87 TH/MM3 (150-450); RED BLOOD COUNT 3.29 MIL/MM3 (4.00-5.30); RED CELL DISTRIBUTION WIDTH 14.6 % (11.6-17.2); WHITE BLOOD COUNT 6.6 TH/MM3 (4.0-11.0)
[2017-10-12 09:11] LABS: HEMO FLAGS AUTO DIFF
[2017-10-12 09:41] LABS: ANION GAP 11 MEQ/L (5-15); AST (GOT) 33 U/L (15-37); BLOOD UREA NITROGEN 28 MG/DL (7-18); CHLORIDE 108 MEQ/L (98-107); GLOMERULAR FILTRATION RATE 31 ML/MIN (>89); PLATELET ESTIMATE SMEAR LOW (NORMAL); PLATELET MORPHOLOGY NORMAL (NORMAL); POTASSIUM 4.3 MEQ/L (3.5-5.1); SCAN/DIFF AUTO DIFF CONFIRMED; SODIUM (NA) 139 MEQ/L (136-145)
[2017-10-12 09:53] LABS: ALKALINE PHOSPHATASE 76 U/L (45-117); ALT (GPT) 26 U/L (10-53); TOTAL BILIRUBIN ADULT 0.6 MG/DL (0.2-1.0)
[~2017-10-12 10:55] MED LIST changes: +CEFT500T3 PO; -CEPH-460 PO; -CILO100T PO; -DETR4CAP PO; -DILT-64 PO; +DILT240C44 PO; -FURO1TAB62 PO; +NIVO1INJ IM; -OSCA200T PO; -PROB1CHW2 CHEW; +TEMA15CA PO; +TOVI8TAB PO; +ZOME4INJ IV
[2017-10-12 11:51] VITALS: BP 162/72; PULSE 86; RESP 16; TEMP 98.1; O2SAT 97
[2017-10-12] MEDS ORDERED: FERR325T2 (12:00)
[2017-10-12] MEDS ORDERED: LACTATED RINGER'S 1000 ML IV PRN (12:00)
[2017-10-12] MEDS ORDERED: MULT-65 PO (12:00)
[2017-10-12] MEDS ORDERED: MUPIROCIN 2% OINT 1 APPLIC/GM SYR NASAL SCH (12:00)
[2017-10-12] MEDS ORDERED: VANCOMYCIN 1000 MG/NS 250 ML IV SCH ×2 (12:00)
[2017-10-12] MEDS ORDERED: AMLO5TAB2 PO (12:00)
[2017-10-12] MEDS ORDERED: ceFAZolin 2 GM PREMIX 50 ML IV SCH (12:00)
[2017-10-12] MEDS ORDERED: METOPROLOL TARTRATE 25 MG TAB PO PRN (12:00)
[2017-10-12] MEDS ORDERED: SODIUM CHLORID 0.9% 500 ML IV PRN (12:00)
[2017-10-12] MEDS ORDERED: NS 1000 ML IV SCH (12:00)
[2017-10-12 12:02] LABS: INTERNATIONAL NORMALIZED RATIO 1.1 RATIO; PROTHROMBIN TIME - PATIENT 11.1 SEC (9.8-11.6)
[2017-10-12] MEDS ORDERED: LIDOCAINE HCL 2% 50 ML VIAL ONE (12:54)
[2017-10-12] MEDS ORDERED: VANCOMYCIN 500 MG VIAL ONE (12:54)
[2017-10-12] MEDS ORDERED: DO NOT ADM ANY ANTICOAGULANT DRUGS PRN (13:00)
--- NOTE | 2017-10-12 14:36 | CATHPROC ---
[email or web address] HIS Report Study Information Study Number Admission Scheduled Start Study Start [id number] Oct 12 2017 10:55AM 10/12/2017 Oct 12 2017 12:33PM [facility] Cardiac Pacer/ICD Admit Source Facility Department Other [facility] - Refresh Technician Physician and Clinical Staff Initial MD Galindo, Lee Divorce Lawyer Anahy Carl,GEE Other Anesthesia, COST AND RISK ANALYSIS MANAGER Recorder Anahy Carl,GEE Recorder Rogelio Hawk,RT(R) Scrub Terese Ruiz,RT(R) TECH2 Procedures Performed Procedure Lead Insertion Equipment Time Stamping Press Operator Description Size Mfg Part Number Used/Scraped INTRODUCER SET, 13:26 [employer] FR 5 [id number] *[id number] Used MICROPUNCTURE, STIFFENED INTRODUCER SET, 13:26 [employer] FR 5 [id number] *[id number] Used MICROPUNCTURE, STIFFENED [id number] 12:35 [employer] SUTURE, STRIP PLUS 1/2" * Used *[id number] 12:35 MEDLINE PACER ADHESIVE, MASTISOL 2/3CC 2/3CC 0523-48 Used 12:35 MEDLINE PACER BAEZ, LIMB * 2530 *[id number] Used [id number] 12:35 MEDLINE PACER PACK, PACER CUSTOM * Used *[id number] 12:35 MEDLINE PACER PEN, SKIN DUAL W/ RULER * Used *[id number] 13:19 [employer] MEDICAL PACER SAFE SHEATH, FR6, 13CM FR 6 [id number] Used 13:19 [employer] MEDICAL PACER SAFE SHEATH, FR6, 13CM FR 6 [id number] Used 13:49 [employer] MEDICAL PACER SAFE SHEATH, FR7, 13CM FR 7 CLS-1007 Used PROBE COVER, STERILE [id number] 12:35 [employer] MEDICAL * Used ULTRASOUND W/ GEL *[id number] 13:18 Needle Sponge Count 2 22 Used 13:18 Needle Sponge Count 30 1 Used 13:18 Needle Sponge Count 4 4 Used 14:14 Needle Sponge Count 5 5 Used 14:16 Needle Sponge Count 6 6 Used [id number] *[id number] 8066-54 *[id number] SUTURE, 0 SILK [CT1] (CO21D), 8pk SUTURE, 3-0 MONOCRYL [SH] (Y316H) SUTURE, 3-0 MONOCRYL [SH] (Y316H) SUTURE, 4-0 MONOCRYL [PS2] (Y496G) SUTURE, 4-0 MONOCRYL [PS2] (Y496G) [id number] 12:35 [employer],WARM AIR CCL * Used *[id number] [facility] PAD, ELECTROSURGICAL 12:35 * [id number] *[id number] Used SURGICAL GROUNDING ORANGE LEAD, CAPSURE FIX NOVUS, 4076-45CM 13:52 [employer] 45CM Used 45CM *[id number] LEAD, CAPSURE FIX NOVUS, 4076-52CM 13:46 [employer] 52CM Used 52CM *[id number] 13:34 [employer]RON RibbonTRONIC MONITOR, PACEMAKER\\ICD 69682V Used PACEMAKERCHARLENE DR MRI 14:11 [employer] OEA-DDDR [id number] Used SURESCAN [id number] 12:35 [employer] CHRIS. / * Used *[id number] Equipment Model, Serial, Lot Number and Expiration Data Description Model Number Serial Number Lot Number Expiration Date LEAD, CAPSURE FIX NOVUS, 52CM 4076 [id number] 06-23-2019 PACEMAKER, CHARLENE MAXWELL MRI A2DR01 [id number] 03-06-2019 SURESCAN History: Allergies Allergy Reaction Betadine Rash cinnamon Contrast Media Itching Demerol VOMITING Dilaudid Nausea/Vomiting morphine Nonsteroidal Anti-Inflammatory ACID REFLUX Agts tomato iohexol Itching diatrizoate meglumine Itching indomethacin ACID REFLUX ibuprofen ACID REFLUX naproxen ACID REFLUX flurbiprofen ACID REFLUX ketoprofen ACID REFLUX povidone-iodine Rash etodolac ACID REFLUX oxaprozin ACID REFLUX gadoteridol Itching gadodiamide Itching diclofenac ACID REFLUX meperidine VOMITING hydromorphone Nausea/Vomiting ketorolac ACID REFLUX iodixanol Itching gadobenic acid Itching History: Risk Factors Hypertension Dyslipidemia Previous NV Previous Heart Failure Yes Yes Yes Yes Prior CABG Yes Cerebrovascular Peripheral Artery Chronic Lung Disease Disease Disease Yes Yes Yes Labs Hgb (g/dl) Hct (%) RBC (MIL/MM3) WBC (l/cumm) Platelets (thousands) 11.60-17.00 35.00-51.00 4.00-5.90 4.00-11.00 150.00-450.00 9.0 28 3.2 6.6 87 Glucose (mg/dl) BUN (mg/dl) Creatinine (mg/dl) BUN:Creatinine (1:x) 74.00-106.00 7.00-18.00 0.50-1.30 10.00-20.00 110 28 1.6 17.5 Na (meq/l) K (meq/l) 136.00-145.00 3.50-5.10 139 4.3 INR (PTT:PT) 0.90-1.10 1.1 Medication Medication Total Dose (Bolus/Oral) Medication Total Dosage/Unit 2% XYLOCAINE 50 mL Medications (Bolus/Oral) Medication Time Given Dosage/Unit Administered By Reason 2% XYLOCAINE 10/12/2017 1:31:11 PM 50 mL Lee Galindo 50 mL 2% XYLOCAINE given in lab by Lee Galindo in Left Arm via Subcutaneous. Ordered by Lee aGlindo. left upper chest Medication (Drip) Medication Time Given Dosage/Unit Concentration/Unit Diluent (ml) Solution 10/12/2017 12:56:50 ANCEF 2 g PM 2 g ANCEF given in lab by Anahy Carl RN in Left Antecubital via Peripheral IV. Ordered by Lee De Souza. 10/12/2017 12:40:20 IV Solutions 0 mL (IV) 500 NaCl .9 PM IV Solutions given in lab by Anahy Carl RN in Left Antecubital via Peripheral IV. Pump/Drip Fl ow = 20 ml/hr using NaCl .9. Ordered by Lee Galindo. 10/12/2017 12:40:40 IV Solutions 0 mL (IV) 500 NaCl .9 PM IV Solutions given in lab by Anahy Carl RN in Right Antecubital via Peripheral IV. Pump/Drip F low = 20 ml/hr using NaCl .9. Ordered by Lee Galindo. 10/12/2017 12:56:50 VANCOMYCIN DRIP 1 g PM 1 g VANCOMYCIN DRIP given in lab by Anahy Carl RN in Left Antecubital via Peripheral IV. Order ed by Lee Galindo. Initial Case Assessment Cardiovascular HR NIBP 92 164/88 Edema Present Skin color Skin None Normal Warm Dry Neurological State Oriented to time-place- Alert Moves all extremities person Respiration - General Respiration Rate SpO2 (%) O2 (lpm) (B/min) 16 100 4 Comment: all vital signs will be recorded by anesthsia during the procedure Final Case Assessment Cardiovascular HR Rhythm NIBP 60 ddd paced 113/54 Edema Present Skin color Skin None Normal Warm Dry Neurological State Lethargic Respiration - General SpO2 (%) O2 (lpm) 100 4 Chronological Log Time Study Chronological Log 12:33:49 Patient arrived via Bed. 12:33:53 Patient Name, D.O.B, / Armband Verified By R.N. 12:33:56 Consent signed by the physician and the patient and verified by the Refresh Technician staff. 12:34:00 Pre-op and post- op instructions given; patient acknowledges understanding of instructions. 12:34:04 Verbal Stimulation=2 Physical Stimulation=2 Airway=2 Respiration=2 TOTAL=8. (0=absent, 1=li mited, 2=present) 12:34:10 Patient has been NPO for More than 6Hrs. 12:34:13 Skin Breakdown-generalized bruising and skin ears to upper extremities and left leg 12:35:43 Patient Warmer Placed on the Table. 12:35:44 Disposable Defibrillator Pads Placed On Patient. 12:35:45 Monica Prominences Protected 12:35:47 A # 20 IV was noted in the Antecubital (left). Grade = 0 0.9ns kvo 12:35:50 Presedation assessment performed by Refresh Technician RN. 12:36:00 A # 20 IV was noted in the Antecubital (right). Grade = 0 0.9ns kvo 12:36:12 History and physical on the chart. IV Solutions given in lab by Anahy Carl RN in Left Antecubital via Peripheral IV. Pump/D rip Flow = 20 ml/hr 12:40:20 using NaCl .9. Ordered by Lee Galindo. IV Solutions given in lab by Anahy Carl RN in Right Antecubital via Peripheral IV. Pump/ Drip Flow = 20 ml/hr 12:40:40 using NaCl .9. Ordered by Lee Galindo. 12:45:50 Anesthesia at bedside. Assumes care of patient. Assessment: Initial Case, HR=92 BPM, ADWU=219/88 mmhg, Edema=None, Color=Normal, Skin = Warm, D ry Neurological: State=Alert, Ox3, ALAN 12:50:41 Respiration: Resp=16 B/min, MrE8=591 %, O2=4 lpm, Comment=all vital signs will be recorded by a nesthsia during the procedure 12:56:50 2 g ANCEF given in lab by Anahy Carl, GEE in Left Antecubital via Peripheral IV. Order ed by Lee Galindo. 1 g VANCOMYCIN DRIP given in lab by Anahy Carl RN in Left Antecubital via Peripheral IV. Ordered by Mateo, 12:56:50 Lee. 13:09:35 Right Upper Chest Prepped Times Two. 3 min drytime 13:17:16 Table restraints applied according to hospital policy 13:17:38 Bovie ground pad applied to:right hip 13:17:48 2% CHLORHEXIDINE GLUCONATE WASH AND NASAL SWIPE DONE PRIOR TO PROCEDURE. First Sponge And Instrument Count Done by Anahy Carl RN. 13:17:52 Hypo's: 4, Sponges: 30, Bovie/scratch: 2 Sutures: 12, Blades: 2, Instruments: 25, Syveck Patches: ~SYVECK PATCH~ and Terese Ruiz Time Out. Correct patient, procedure, procedure equipment, site and side verified with physicia n present. Time 13:29:50 concurred by MD, individual staff and COST AND RISK ANALYSIS MANAGER. Time Out #2 - Consents verified, patient in correct position, all results are labled and displa yed, safety precautions 13:29:54 taken, antibiotics administered. Time out concurred by MD, individual staff and COST AND RISK ANALYSIS MANAGER in procedu re 13:30:15 Case Start 50 mL 2% XYLOCAINE given in lab by Lee Galindo in Left Arm via Subcutaneous. Ordered by Lee Garcia. 13:31:11 left upper chest 13:33:46 Vascular access was obtained in the Subclav. Vein (Lft. with ultrasound guidance 13:39:50 Vascular access was obtained in the Subclav. Vein (Lft. with unltrasound guidance 13:40:35 Surgical Incision Made. left upper chest 13:40:43 A pocket was created at the L Upper Chest. 13:45:03 A SAFE SHEATH, FR6, 13CM FR 6 was advanced into the Fem Vein (right) using the Hector tech nique. 13:45:35 A LEAD, CAPSURE FIX NOVUS, 52CM 52CM was inserted and positioned in the RV. 13:45:55 Lead placement verified under fluoroscopy 13:46:47 rv lead removed 13:48:16 lead unable to pass through 6fr sheath 13:49:13 A SAFE SHEATH, FR7, 13CM FR 7 was exchanged in the Subclav. Vein (Lft. This was necessary i n order ~REASON~. 13:50:06 rv lead inserted again through 7fr sheath 6fr sheath (optiseal) inserted in left subclavin vein by dr galindo 13:51:10 13:51:58 A LEAD, CAPSURE FIX NOVUS, 45CM 45CM was inserted and positioned in the RA. 13:52:19 Lead placement verified under fluoroscopy 13:56:36 The RV lead impedance and threshold being tested. 14:01:24 The RV lead was sutured to the fascia. 14:04:29 The Atrial lead impedance and threshold is being tested. 14:06:46 The Atrial lead was sutured to the fascia. 14:07:54 Pocket flushed with antibiotic solution 14:09:37 A PACEMAKER, ADVISA DR TEE CARDENAS OEA-DDDR was connected and placed in the pocket. 14:11:01 Implant Procedure was performed. 14:11:06 A PPM Implant . (Dual) Second Sponge And Instrument Count Done by Anahy Carl RN. Hypo's: 6, Sponges: 30, Bovie/scratch: 2 14:12:59 Sutures: ~SUTURE~, Blades: 2, Instruments: ~INSTRU~, Syveck Patches: ~SYVECK PATCH~ and Terese Ruiz(2 hypos added) 14:13:24 The pocket was closed. 14:23:04 Dr. Galindo is continuing to close the pocket. 14:29:33 Case End 14:29:53 Bedside Report will be given. 14:29:54 Steri-strips and a sterile dressing applied to site. The Final Sponge And Instrument Count Done by Anahy Carl, GEE. 14:29:58 Hypo's: 6, Sponges: 30, Bovie/scratch: 2 Sutures: 12, Blades: 2, Instruments: 25, Syveck Patches: ~SYVECK PATCH~ and Tereseher Ruiz 14:30:25 A sling will be placed on the affected arm. Assessment: Final Case, HR=60 BPM, Rhythm=ddd paced, IINL=755/54 mmhg, Edema=None, Color=Normal , Skin = Warm, Dry 14:30:45 Neurological: State=Lethargic Respiration: OaG2=244 %, O2=4 lpm 14:35:02 Sterile dressing applied to site 14:35:04 No case complications noted. 14:35:09 Bedside Report will be given. 14:35:12 Implantable Device card placed in patient's chart. 14:35:30 Defibrillator and ground pads removed. Skin intact. 14:35:33 Patient moved to stretcher End Study - Contrast Media Used In Study Contrast Total Opened (mL) Total Used (mL) Total Wasted (mL) Omnipaque 0 0 0 End Study - Maximum Contrast Load Max Contrast Load (mL) 194.3 End Study - Radiation Exposure Fluoro Time (minutes) 5.6 End Study - Patient Disposition Complications No
[2017-10-12] MEDS ORDERED: SODIUM CHLORIDE 0.9% FLUSH 10 ML FLUSH IV FLUSH PRN (15:30)
[2017-10-12] MEDS ORDERED: MAGNESIUM HYDROXIDE SUSP 30 ML CUP PO PRN (15:30)
[2017-10-12] MEDS ORDERED: ONDANSETRON HCL 4 MG/2 ML VIAL IV PUSH PRN (15:30)
[2017-10-12] MEDS: SODIUM CHLORIDE 0.9% FLUSH 10 ML FLUSH IV FLUSH SCH ×2 (15:30→20:28)
--- NOTE | 2017-10-12 15:38 | RADRPT ---
EXAM DATE/TIME: 10/12/2017 14:47 [place] COMPARISON: CHEST SINGLE AP, March 07, 2017, 15:49. INDICATIONS : Post pacemaker. Evaluate for pneumothorax. MEDICAL HISTORY : Carcinoma, lung. Cardiovascular disease. Hypertension. SURGICAL HISTORY : Cholecystectomy. ENCOUNTER: Initial ACUITY: 1 day PAIN SCORE: 0/10 LOCATION: Bilateral chest FINDINGS: A single portable frontal view of the chest shows interval placement of a dual-lead pacing device on the left. The leads terminate in the region of the right atrium and right ventricle respectively. No pneumothorax. A right-sided Port-A-Cath. This is a power port. Lungs are clear without infiltrate or effusion. Heart normal in size. Median sternotomy wires. CONCLUSION: No pneumothorax. Ashutosh Chacon Jr., MD on October 12, 2017 at 15:31 Board Certified Radiologist. This report was verified electronically.
[2017-10-12 19:04] VITALS: BP 121/58; PULSE 94; RESP 17; TEMP 98.3; O2SAT 96
[2017-10-12] MEDS ORDERED: ACETAMINOPHEN 325 MG TAB PO PRN (19:45)
[2017-10-12 20:00] VITALS: BP 130/67; PULSE 90; PULSE 91; RESP 18; TEMP 98.2; O2SAT 96
[2017-10-12] MEDS: ACETAMINOPHEN 325 MG TAB PO PRN (20:27)
[2017-10-12] MEDS: ceFAZolin 2 GM PREMIX 50 ML IV SCH ×2 (20:28→23:57)
[2017-10-12 21:00] VITALS: PULSE 90
[2017-10-12] MEDS ORDERED: ZOLPIDEM TARTRATE 5 MG TAB PO PRN (21:00)
[2017-10-12] MEDS ORDERED: TEMAZEPAM 15 MG CAP PO SCH (21:00)
[2017-10-12 22:00] VITALS: PULSE 86
[2017-10-12 23:00] VITALS: PULSE 82
[2017-10-13] VITALS (15 sets, daily range): BP systolic 131–157; BP diastolic 54–71; PULSE 75–85; RESP 17–18; TEMP 97.6–98.4; O2SAT 96–99
[2017-10-13] MEDS: ceFAZolin 2 GM PREMIX 50 ML IV SCH (05:04)
[2017-10-13] MEDS: ACETAMINOPHEN 325 MG TAB PO PRN (08:48)
[2017-10-13] MEDS: SODIUM CHLORIDE 0.9% FLUSH 10 ML FLUSH IV FLUSH SCH (08:49)
--- NOTE | 2017-10-13 14:19 | EKG ---
Date Performed: 10/12/2017 Time Performed: 11:45:20 PTAGE: 72 years EKG: Sinus rhythm . Left bundle branch block Compared to previous tracing Left bundle branch block has replaced the Rig ht bundle branch block. Clinical correlation is recommended Abnormal ECG PREVIOUS TRACING : 03/08/2017 06.59 DOCTOR: Taco Bailey Interpretating Date/Time 10/13/2017 14:17:50
--- NOTE | 2017-10-14 10:24 | MP ---
cc: LEE GALINDO M.D. [facility] DATE OF SURGERY 10/12/2017 PROCEDURE PERFORMED Dual chamber pacemaker. INDICATIONS FOR PACEMAKER 1. 2:1 heart block. 2. Syncope. CONSENT A full, informed consent was obtained prior to the procedure. The risks of , bleeding, perforation, aspiration, pneumothorax, foreseen and unforeseen complications were reviewed. The patient fully appeared to understand the risks. PROCEDURAL STATEMENT The patient was draped and prepped in the usual manner. The left infraclavicular area was carefully infiltrated with lidocaine. Using a two-stick procedure with micropuncture and ultrasound, two guidewires were placed into the venous circulation. Using blunt, sharp and cautery dissection the pocket was fashioned in the usual manner. Over the two guidewires, two introducer sheaths were passed into venous circulation and through these sheaths, two [employer] pacemaker leads were passed into the venous circulation. The longer 52-cm lead was passed to the right ventricular apex and the helical screw advanced into the myocardium. Excellent pacing and sensing parameters were noted. The atrial lead was passed into the lateral wall as there was no obvious right atrial appendage possibly because of the prior history of surgery. Excellent pacing and sensing parameters were noted in the atrial lead as well. Both leads were sewn into the pectoralis fascia. Both leads were connected their respective chambers in the pulse generators. The pulse generator was sewn to the pectoralis fascia. Prior to this the pocket was flushed with vancomycin solution. The set screws in the pulse generator were tightened but not over-tightened. The system was checked by the [employer] rep. All appeared to be functional. The pacemaker pocket was flushed with vancomycin solution at all locations and the pocket then closed in three layers. CONCLUSIONS Successful placement of dual-chamber pacemaker. PLAN We will plan to discharge the patient tomorrow. We will plan to do a chest x-ray to rule out pneumothorax. Lee Galindo MD, MICHAEL,[facility] LISETHJ/BUBBA /2:35 PM /9:55 AM
== END 2017-10-13 12:46 | disposition home or self-care (01) ==
LOC: HDOC 10:55 → HDIC 10:55 → HCIS 17:26 → HDOC 10-13 12:46
PROVIDERS: ATTEND Internal Medicine Cardiovascular Disease
DX: I44.1 Atrioventricular block, second degree (principal); I45.9 Conduction disorder, unspecified; I25.10 Atherosclerotic heart disease of native coronary artery without angina pectoris; I77.810 Thoracic aortic ectasia; I65.29 Occlusion and stenosis of unspecified carotid artery; I10 Essential (primary) hypertension; I34.0 Nonrheumatic mitral (valve) insufficiency; I45.2 Bifascicular block
CPT/HCPCS: 00530; 33208; 71010; 80053; 84443; 85025; 85610; 93005; C1779; C1785; J0690; J3370